=== PATIENT | male | born 1955 | race Caucasian/White ===

== ENCOUNTER 2022-07-16 08:05 | Inpatient (IN) | payer MEDICARE, SELFPAY ==
[2022-07-16] VITALS (11 sets, daily range): BP systolic 100–141; BP diastolic 60–95; PULSE 75–120; RESP 15–22; TEMP 36.4–36.9; O2SAT 94–97; BMI 29.0; BMI 26.3
--- NOTE | 2022-07-16 08:08 | ED_ITS ---
HPI - GI Bleed General: Chief complaint: GI Bleed Stated complaint: bloody stool Time Seen by Provider: 07/16/22 08:08 History of Present Illness: Mr. Roberson is a 67-year-old gentleman with out reported significant past medical history who presents to the ER for GI bleed. He reports 3 days of subacute onset abdominal discomfort associated with multiple episodes of watery diarrhea and vomiting. This morning he had worse abdominal cramping and pain with bowel movement with blood noted in stool. Mild associated lightheadedness and generalized malaise. Denies history of similar. No history of endoscopy. No history of bleeding disorders or other bruising. Course of symptoms has persisted. Intensity of abdominal discomfort is moderate to severe. No history of abdominal surgery. No other specific changes in health, exacerbating, or alleviating factors identified. Onset (ago): day(s) Pain Consistency: constant Severity: moderate Review of Systems General: Reports: 10 or more systems reviewed and unremarkable except in HPI and below PFSH ED PFSH: Medical History (Updated 07/19/22 @ 00:01 by ) COPD (chronic obstructive pulmonary disease) Depression with anxiety DJD (degenerative joint disease) GERD (gastroesophageal reflux disease) Hyperlipidemia No significant past medical history Osteoporosis Rheumatoid arthritis Surgical History (Updated 07/16/22 @ 08:35 by Asad Bateman MD) No significant past surgical history Family History (Updated 07/16/22 @ 11:30 by Leonardo Talamantes MD) Other Diabetes Social History (Updated 07/16/22 @ 11:30 by Leonardo Talamantes MD) Smoking and tobacco status: current every day smoker Alcohol intake: never Physical Exam Const: COMMON NORMALS: alert GENERAL APPEARANCE: cooperative and well developed HENMT: COMMON NORMALS: normocephalic and atraumatic HEAD & SCALP: normocephalic and atraumatic Eye: COMMON NORMALS: conjunctivae normal CONJUNCTIVA: Yes conjunctivae normal SCLERA: sclerae normal Neck/C-Spine: COMMON NORMALS: supple GENERAL: Yes trachea midline Resp: COMMON NORMALS: normal respiratory effort EFFORT & INSPECTION: Yes able to speak in complete sentences AUSCULTATION: diminished lung sounds Cardio: COMMON NORMALS: regular rhythm RATE: tachycardic RHYTHM: regular rhythm GI: COMMON NORMALS: Soft to palpation PALPATION: Yes Soft to palpation, Yes Tenderness to palpation present (GI), Yes Guarding due to palpation present (GI) and No Rigid due to palpation Extremity: GENERAL: Yes normal exam except as noted and No edema Neuro: COMMON NORMALS: moves all extremities SENSORIUM/ORIENTATION: Yes alert and No Orientation impaired Psych: COMMON NORMALS: mental status grossly normal and Normal thought process present THOUGHT PROCESS: Normal thought process present Course ED course: - Patient was seen and evaluated by me at bedside - Patient placed on cardiac monitors, IV access obtained - Initial evaluation notable for exam as above - Labs personally interpreted by me - Fluids, analgesia, and antiemetic given - Labs notable for leukocytosis, satisfactory hemoglobin. Metabolic panel with evidence of intravascular dehydration - Imaging notable for diverticulitis which likely explain symptoms. Antibiotic ordered. - Upon serial reexamination after treatment the patient was mildly improved. - Based on patient history, evaluation, and testing as interpreted the most likely cause of the patient's condition is diverticulitis resulting in dehydration with CHRISTIAN and GI bleed - The results of ED evaluation were discussed with the patient including plan for admission due to requirement for level of care not available if discharged to prevent significant worsening/deterioration. - Admitting service was contacted and Dr Talamantes with the hospital service agreed to admit the patient - Patient was admitted without further deterioration or significant events. Note: Click bubbles or prepopulated caicedo in note writing are used for assistance with data collection and billing and are inherently more limited than narrative and other text portions of this note. Please use narrative for additional clinical history and defer to narrative/free test for any case of contradictory information. If information appears in only free text or click bubble it should be considered present or absent as reported. Please contact note senior medical writer for clarifications of clinical information or contradictory information. MDM is a brief summary, contradictory or erroneous seeming information should be clarified and full note should be reviewed. Vital Signs: Vital signs: Vital Signs Temperature 98.1 F 07/18/22 15:26 Pulse Rate 74 07/18/22 15:26 Respiratory Rate 18 07/18/22 15:26 Blood Pressure 112/66 07/18/22 15:26 Pulse Oximetry 92 07/18/22 15:26 Oxygen Delivery La thod 07/18/22 11:46 MDM - GI Bleed Medical Decision Making 67-year-old gentleman presenting with 3 days of GI illness now with blood per rectum. CHRISTIAN likely from dehydration as well as diverticulitis. Given laboratory abnormalities and patient exam patient admitted for further observation to hospitalist service. Medical Records I reviewed the patient's medical records. Lab Data I reviewed the patient's lab results. : 07/18/22 04:43 07/18/22 04:43 Radiology Impressions Abdomen/Pelvis CT 07/16/22 08:28 IMPRESSION: 1. Mild descending colon and sigmoid diverticulitis without a focal abscess or free air. 2. Extensive diverticular disease throughout the colon. 3. Bilateral renal cysts. 4. Several osteoporotic compression fractures. Laboratory Results WBC 11.1 10^3/uL (4.0-10.0) H 07/17/22 04:53 RBC 3.85 10^6/uL (4.1-5.3) L 07/17/22 04:53 Hgb 13.2 g/dL (11.7-16.6) 07/17/22 04:53 Hct 39.2 % (42.0-52.0) L 07/17/22 04:53 MCV 101.8 fl (80-94) H 07/17/22 04:53 MCH 34.3 pg (28.0-34.0) H 07/17/22 04:53 MCHC 33.7 g/dL (30.0-36.0) 07/17/22 04:53 RDW 14.8 % (12.1-15.1) 07/17/22 04:53 Plt Count 168 10^3/cmm (130-400) 07/17/22 04:53 MPV 9.2 fL (7.4-10.4) 07/17/22 04:53 Neut % (Auto) 77.2 % 07/17/22 04:53 Lymph % (Auto) 14.4 % 07/17/22 04:53 Dixie % (Auto) 7.6 % 07/17/22 04:53 Eos % (Auto) 0.2 % 07/17/22 04:53 Baso % (Auto) 0.1 % 07/17/22 04:53 Neut # (Auto) 8.56 10^3/uL (1.8-7.7) H 07/17/22 04:53 Lymph # (Auto) 1.6 10^3/uL (0.8-4.8) 07/17/22 04:53 Dixie # (Auto) 0.8 10^3/uL (0.2-0.9) 07/17/22 04:53 Eos # (Auto) 0.0 10^3/uL (0.0-0.8) 07/17/22 04:53 Baso # (Auto) 0.0 10^3/uL (0.0-0.1) 07/17/22 04:53 Nucleated RBC % (auto) 0.2 % 07/17/22 04:53 Nucleated RBCs # 0.0 /100WBC 07/17/22 04:53 PT 14.20 SECONDS (12.1-14.9) 07/16/22 08:30 INR 1.25 (0.8-1.2) H 07/16/22 08:30 APTT 25.2 SECONDS (23.9-36.7) 07/16/22 08:30 Sodium 136 mmol/L (136-145) 07/17/22 04:53 Potassium 4.2 mmol/L (3.5-5.1) 07/17/22 04:53 Chloride 104 mmol/L (98-107) 07/17/22 04:53 Carbon Dioxide 24 mmol/L (22-29) 07/17/22 04:53 Anion Gap 12.2 (5-19) 07/17/22 04:53 BUN 21 mg/dL (8-23) 07/17/22 04:53 Creatinine 0.9 mg/dL (0.7-1.2) 07/17/22 04:53 GFR Calculation 84.2 mL/min (90-130) L 07/17/22 04:53 Glucose 103 mg/dL (65-115) 07/17/22 04:53 Estimat Average Glucose 120 07/16/22 08:30 Hemoglobin A1c 5.8 % (4.0-6.0) 07/16/22 08:30 Calculated Osmolality 285 mOsm/kg (285-295) 07/17/22 04:53 Calcium 8.3 mg/dL (8.5-10.5) L 07/17/22 04:53 Magnesium 2.0 mg/dL (1.7-2.3) 07/17/22 04:53 Total Bilirubin 0.8 mg/dL (0.15-1.2) 07/17/22 04:53 AST 15 U/L (0-40) 07/17/22 04:53 ALT 8 U/L (0-41) 07/17/22 04:53 Alkaline Phosphatase 63 U/L (40-130) 07/17/22 04:53 Total Protein 5.5 g/dL (6.6-8.7) L D 07/17/22 04:53 Albumin 3.1 g/dL (3.5-5.2) L 07/17/22 04:53 Globulin 2.4 g/dL (1.3-4.6) 07/17/22 04:53 Lipase 14 U/L (13-60) 07/16/22 08:30 Vitamin B12 616 pg/mL (232-1245) 07/16/22 08:30 Folate 18.4 ng/mL (4.5-32.2) 07/16/22 08:30 TSH 3.65 uIU/mL (0.27-4.20) 07/16/22 08:30 Blood Type O Positive 07/16/22 08:30 Rho(D) Type Positive 07/16/22 08:30 Antibody Screen Negative 07/16/22 08:30 Discharge Plan Discharge Patient Disposition: Placed in Observation Admit Provider: Leonardo Talamantes Clinical Impression: Melena, Acute GI bleeding, Diverticulitis, Leukocytosis, Dehydration, CHRISTIAN (acu te kidney injury) Discharge Activity: Resume usual activity Coding Level of Care Code ED Animal Hospital Clerk for Marcos Fwd Exam Comprehensive
--- NOTE | 2022-07-16 08:28 | CT_ITS ---
WS: [id number] CT ABDOMEN AND PELVIS WITH CONTRAST HISTORY: gi bleed, 3 days n/v/d, abdominal pain generalized TECHNIQUE: Imaging performed of the abdomen and pelvis with IV contrast. Single phase imaging of the abdomen. Coronal and sagittal reformats are submitted. All CT scans at [facility] use at [address] one of these dose optimization techniques: automated exposure control; mA and/or kV adjustment per patient size (includes targeted exams where dose is matched to clinical indication); or iterative re construction. IV CONTRAST: Omnipaque 350; 95 mL IV. Oral contrast: No DLP: 645.49 mGy.cm COMPARISON: None available. Lower thorax: Lung bases are clear. Heart is normal size. Small hiatal hernia. Liver/biliary system: Normal size with granulomata. No mass. Normal portal vein. Gallbladder: Normal. No gallstones or wall thickening. No pericholecystic fluid. Pancreas: Normal size pancreas and pancreatic duct. No adjacent inflammation. Spleen: Normal size spleen. No mass or infarct. Adrenal glands: Normal. Right kidney: No obstruction. Mild perinephric stranding. Nonobstructing 4 mm calcification lower dillon e. Small cortical cysts. Left kidney: Mild perinephric stranding with small cortical cysts. No obstruction. Aorta: Mild atherosclerosis with no aneurysm. No mesenteric artery stenosis or thrombus identified. Lymphadenopathy: None. Free fluid: None. GI tract: Normal stomach and small bowel. Numerous diverticula throughout the entire colon. Largest d istribution of diverticulitis towards the sigmoid colon. There is some very mild inflammation in the descending colon around several diverticula extending towards the sigmoid. No focal perforation or ab scess. Normal appendix. Abdominal wall: Unremarkable abdominal wall. No hernia. Pelvis: Urinary bladder well distended. No adenopathy or free fluid. Bones: L1, L2 and L4 mild compression deformities. Additional T9 mild compression deformity. CT/CT abdomen pelvis w con* [id number] IMPRESSION: 1. Mild descending colon and sigmoid diverticulitis without a focal abscess or free air. 2. Extensive diverticular disease throughout the colon. 3. Bilateral renal cysts. 4. Several osteoporotic compression fractures.
[2022-07-16] MEDS: lactated ringers 1,000 ML 999 ML IV (08:45)
[2022-07-16] MEDS: morphine 4 mg/mL SDV 1 mL IVP (08:46)
[2022-07-16] MEDS: ondansetron 2 mg/ML SDV 2 mL 4 MG IVP (08:46)
[2022-07-16 08:58] LABS: Basophils # 0.1 10^3/uL (0.0-0.1); Basophils % 0.3 %; Eosinophils % 0.3 %; Hematocrit 52.7 % (42.0-52.0); Hemoglobin 17.1 g/dL (11.7-16.6); Lymphocytes % 13.2 %; Mean Corpuscular HGB Conc 32.4 g/dL (30.0-36.0); Mean Corpuscular Hemoglobin 33.9 pg (28.0-34.0); Mean Corpuscular Volume 104.4 fl (80-94); Mean Platelet Volume 9.1 fL (7.4-10.4); Monocytes # 0.9 10^3/uL (0.2-0.9); Monocytes % 6.2 %; Neutrophils # 11.99 10^3/uL (1.8-7.7); Neutrophils % 79.3 %; Nucleated Red Blood Cells % 0.2 %; Platelet Count 234 10^3/cmm (130-400); Red Blood Count 5.05 10^6/uL (4.1-5.3); White Blood Count 15.1 10^3/uL (4.0-10.0)
[2022-07-16 09:18] LABS: Alanine Aminotransferase 10 U/L (0-41); Albumin Level 4.1 g/dL (3.5-5.2); Alkaline Phosphatase 91 U/L (40-130); Anion Gap 21.1 (5-19); Aspartate Amino Transferase 19 U/L (0-40); Blood Urea Nitrogen 44 mg/dL (8-23); Calcium 9.1 mg/dL (8.5-10.5); Carbon Dioxide 20 mmol/L (22-29); Chloride 97 mmol/L (98-107); Globulin 3.2 g/dL (1.3-4.6); Glomerular Filtration Rate 50.5 mL/min (90-130); Glucose 136 mg/dL (65-115); Lipase 14 U/L (13-60); Osmolality Calculated 291 mOsm/kg (285-295); Potassium 4.1 mmol/L (3.5-5.1); Sodium 134 mmol/L (136-145); Total Bilirubin 1.2 mg/dL (0.15-1.2); Total Protein 7.3 g/dL (6.6-8.7)
[2022-07-16 09:23] LABS: INR 1.25 (0.8-1.2)
[2022-07-16 09:24] LABS: Partial Thromboplastin Time 25.2 SECONDS (23.9-36.7)
[2022-07-16] MEDS: iohexol 350 mg/mL 100 mL Btl IV (09:48)
[2022-07-16] MEDS: ciprofloxacin 400 MG/200 ML PREMIX 200 MG IV ×2 (10:36→21:05)
--- NOTE | 2022-07-16 11:26 | PM.HP ---
Providers/Chief Complaint Admitting Physician: Leonardo Talamantes MD, hospitalist Primary Care Provider: Abel Moser MD Chief Complaint: bloody stool History of Present Illness Jc Roberson is a 67 year old male who presents to the hospital emergency department with complaints of abdominal pain. This is been going on 3 days, and mainly in his left lower quadrant. This morning, he had a dark stool with obvious blood. He had never had blood in his stool before, or abdominal discomfort. He has been nauseated, and vomited 1 time yesterday. No blood present in his emesis. He has had some chills but no fever. He reports no prior history of colonoscopy. Bowel movement today was blood mixed with stool. Review of Systems General: Reports: 10 or more systems reviewed and unremarkable except in HPI and below Const: Reports: chills and fatigue; Denies: fever(s) Eyes: Denies: change in vision ENMT: Denies: throat pain Card: Denies: chest pain Resp: Denies: dyspnea GI: Reports: abdominal pain, nausea, vomiting and hematochezia; Denies: hematemesis or melena : Denies: flank pain or difficulty urinating Musc: Reports: back pain; Denies: neck pain Skin/Breast: Denies: rash Neuro: Denies: headache(s) Psych: Denies: anxiety or depression Endo: Denies: polyuria Norm/Lymph: Reports: easy bruising All/Imm: Denies: urticaria Medications/Allergies Home Medications Medication Instructions Recorded Confirmed Last Taken Type albuterol sulfate 90 mcg/actuation 2 puff inhalation Q4H PRN 07/16/22 07/16/22 Unknown History aerosol inhaler (Ventolin HFA) Shortness Of Breath Or Wheezing citalopram 40 mg tablet 40 mg PO DAILY 07/16/22 07/16/22 Unknown History diclofenac sodium 1 % topical gel 1 ea topical Q6H 07/16/22 07/16/22 Unknown History ezetimibe 10 mg tablet 10 mg PO DAILY 07/16/22 07/16/22 Unknown History fluconazole 200 mg tablet 200 mg PO DAILY 07/16/22 07/16/22 Unknown History folic acid 1 mg tablet 1 mg PO DAILY 07/16/22 07/16/22 Unknown History gabapentin 300 mg capsule 300 mg PO TID 07/16/22 07/16/22 Unknown History methotrexate sodium 2.5 mg tablet 2.5 mg PO DAILY 07/16/22 07/16/22 Unknown History omeprazole 20 mg capsule,delayed 20 mg PO BID 07/16/22 07/16/22 Unknown History release prednisone 5 mg tablet 10 mg PO DAILY 07/16/22 07/16/22 Unknown History tizanidine 4 mg capsule 4 mg PO TID 07/16/22 07/16/22 Unknown History tramadol 50 mg tablet 50 mg PO Q6H 07/16/22 07/16/22 Unknown History trazodone 50 mg tablet 50 mg PO DAILY 07/16/22 07/16/22 Unknown History Allergies Allergy/AdvReac Type Severity Reaction Status Date / Time No Known Allergies Allergy Verified 07/16/22 09:05 PFSH Acute PFSH: Medical History (Updated 07/16/22 @ 11:38 by Leonardo Talamantes MD) COPD (chronic obstructive pulmonary disease) Depression with anxiety DJD (degenerative joint disease) GERD (gastroesophageal reflux disease) Hyperlipidemia No significant past medical history Osteoporosis Rheumatoid arthritis Surgical History (Updated 07/16/22 @ 08:35 by Asad Bateman MD) No significant past surgical history Family History (Updated 07/16/22 @ 11:30 by Leonardo Talamantes MD) Other Diabetes Social History (Updated 07/16/22 @ 11:30 by Leonardo Talamantes MD) Smoking and tobacco status: current every day smoker Alcohol intake: never Other PFSH information: Supplemental PFSH Information: History of right carotid gland surgery or perhaps lymph node surgery many years ago. Vitals/I&O/Wt Last Vital Signs Temp 97.6 F 07/16/22 08:17 Pulse 98 07/16/22 08:42 Resp 18 07/16/22 08:46 BP 140/95 07/16/22 08:42 Pulse Ox 95 07/16/22 08:46 O2 Del Method 07/16/22 08:42 07/15/22 07/16/22 07/16/22 22:59 06:59 14:59 Intake Total 1000 / 1000 Balance 1000 / 1000 Weight last 48 hrs Weight 81.647 kg Physical Exam Narrative: General exam is a white male, somewhat uncomfortable, who is able to relate his history without difficulty HEENT: Atraumatic and normocephalic. Pupils equally round. Oropharynx clear. Neck is supple no lymphadenopathy or thyromegaly Cardiovascular regular rate and rhythm without murmur no S3 or S4 Lungs clear no wheezing or crackles Abdomen is soft. Tenderness is present mainly in the left lower quadrant. Bowel sounds are noted. exams deferred Extremities no cyanosis clubbing or edema Skin no rash Neuro no focal deficits Data : 07/16/22 08:30 07/16/22 08:30 Other Labs: MCV elevated at 104 INR 1.25 LFTs normal Abdomen pelvis CT demonstrates mild descending and sigmoid diverticulitis without abscess or free air and otherwise extensive diverticular disease. Other nonacute findings are noted. Blood culture was collected Micro: Microbiology 07/16/22 08:41 Blood Culture - Preliminary Blood SPECIMEN COLLECTED 07/16/22 08:30 Blood Culture - Preliminary Blood SPECIMEN COLLECTED A&P Assessment and plan (1) Diverticulitis: Patient presents with significant diverticulitis, worsening symptoms over the last 3 days, associated with nausea and vomiting, elevated white blood cell count, chills, and now bleeding. Continue Cipro and Flagyl initiated in the ER Blood culture was obtained May have medicines, clear liquids Monitor closely for improvement Will need outpatient colonoscopy in approximately 6 weeks Status: Acute (2) Acute GI bleeding: GI bleeding most likely secondary to diverticulitis. However, as he has had nausea and vomiting, is on prednisone, and long history of reflux will place on Protonix IV Repeat hemoglobin at 6 PM Monitor stools for any further bleeding Status: Acute (3) Leukocytosis: Secondary to diverticulitis, trend Status: Acute (4) CHRISTIAN (acute kidney injury): Hydration Avoid renal toxic medication Recheck renal function tomorrow Status: Acute (5) Rheumatoid arthritis: Hold methotrexate in face of infection As he is chronically on steroids, has a significant acute infection, will increase prednisone to 10 mg twice daily Status: Acute (6) Hyperglycemia: Check hemoglobin A1c Status: Acute (7) Macrocytosis: Most likely secondary to methotrexate. Check TSH, B12, folate Status: Acute Plan Multiple other medical problems as outlined in past medical history Full code SCDs for DVT prophylaxis. Anticoagulation contraindicated secondary to GI bleed Attestations Medical Necessity Statement*: May require less than 2 midnight stay if rapidly improves from diverticulitis and is able to tolerate diet and has no further bleeding. Coding Level of Care Code Acute Training Administrator for g Fwd Diagnoses Diverticulitis K57.92 Acute GI bleeding K92.2 Leukocytosis D72.829 CHRISTIAN (acute kidney injury) N17.9 Rheumatoid arthritis M06.9 Hyperglycemia R73.9 Macrocytosis D75.89
[2022-07-16] MEDS: metroNIDAZOLE IV 500 MG/100 ML PREMIX 100 MG IV ×3 (11:38→23:21)
[2022-07-16 11:59] LABS: Estmated Average Glucose 120; Hemoglobin A1C 5.8 % (4.0-6.0)
[2022-07-16 13:11] LABS: Folate Level 18.4 ng/mL (4.5-32.2)
[2022-07-16 13:12] LABS: Thyroid Stimulating Hormone 3.65 uIU/mL (0.27-4.20); Vitamin B12 616 pg/mL (232-1245)
[2022-07-16] MEDS: sodium chloride 0.9% 1,000 ML 75 ML IV ×2 (14:55→23:20)
[2022-07-16] MEDS: gabapentin 300 mg Capsule PO ×2 (14:56→20:30)
[2022-07-16] MEDS: TRAMadol 50 mg Tablet PO (14:56)
[2022-07-16] MEDS: pantoprazole 40 mg SDV IVP (15:18)
[2022-07-16] MEDS: predniSONE 10 mg Tablet PO (17:15)
[2022-07-16 18:42] LABS: Hematocrit 40.5 % (42.0-52.0); Hemoglobin 13.8 g/dL (11.7-16.6)
[2022-07-16] MEDS: trazodone 50 mg Tablet PO (20:30)
[2022-07-17] VITALS (7 sets, daily range): BP systolic 91–134; BP diastolic 51–87; PULSE 66–86; RESP 14–20; TEMP 36.7–37.1; O2SAT 92–98
--- NOTE | 2022-07-17 00:08 | PC.NURSE ---
Patient states that his pain is at a tolerable level. Patient educated about PRN medications options that are available and verbalized understanding.
[2022-07-17] MEDS: metroNIDAZOLE IV 500 MG/100 ML PREMIX 100 MG IV ×4 (04:17→22:19)
[2022-07-17] MEDS: pantoprazole 40 mg SDV IVP ×2 (04:17→16:08)
[2022-07-17 05:12] LABS: Basophils % 0.1 %; Eosinophils % 0.2 %; Hematocrit 39.2 % (42.0-52.0); Hemoglobin 13.2 g/dL (11.7-16.6); Lymphocytes # 1.6 10^3/uL (0.8-4.8); Lymphocytes % 14.4 %; Mean Corpuscular HGB Conc 33.7 g/dL (30.0-36.0); Mean Corpuscular Hemoglobin 34.3 pg (28.0-34.0); Mean Corpuscular Volume 101.8 fl (80-94); Mean Platelet Volume 9.2 fL (7.4-10.4); Monocytes # 0.8 10^3/uL (0.2-0.9); Monocytes % 7.6 %; Neutrophils # 8.56 10^3/uL (1.8-7.7); Neutrophils % 77.2 %; Nucleated Red Blood Cells % 0.2 %; Platelet Count 168 10^3/cmm (130-400); Red Blood Count 3.85 10^6/uL (4.1-5.3); Red Cell Distribution Width 14.8 % (12.1-15.1); White Blood Count 11.1 10^3/uL (4.0-10.0)
[2022-07-17 05:43] LABS: Alanine Aminotransferase 8 U/L (0-41); Albumin Level 3.1 g/dL (3.5-5.2); Alkaline Phosphatase 63 U/L (40-130); Anion Gap 12.2 (5-19); Aspartate Amino Transferase 15 U/L (0-40); Blood Urea Nitrogen 21 mg/dL (8-23); Calcium 8.3 mg/dL (8.5-10.5); Carbon Dioxide 24 mmol/L (22-29); Chloride 104 mmol/L (98-107); Globulin 2.4 g/dL (1.3-4.6); Glomerular Filtration Rate 84.2 mL/min (90-130); Glucose 103 mg/dL (65-115); Osmolality Calculated 285 mOsm/kg (285-295); Potassium 4.2 mmol/L (3.5-5.1); Sodium 136 mmol/L (136-145); Total Bilirubin 0.8 mg/dL (0.15-1.2); Total Protein 5.5 g/dL (6.6-8.7)
--- NOTE | 2022-07-17 08:47 | P.PN_ITS ---
Subjective Subjective: Jc reports that his abdomen feels a little bit better, although fractionating still operator. He has not had any nausea and vomiting. Some chills but no fever through the night. Medications: Reviewed: Yes Vitals/I&O/Wt Last Vital Signs Temp 98.4 F 07/17/22 08:00 Pulse 77 07/17/22 08:00 Resp 17 07/17/22 08:00 BP 103/56 07/17/22 08:00 Pulse Ox 92 07/17/22 08:00 O2 Del Method 07/17/22 08:00 07/16/22 07/17/22 07/17/22 22:59 06:59 14:59 Intake Total 540 / 1840 1031.25 / 2871.25 Output Total 600 / 600 Balance -60 / 1240 1031.25 / 2271.25 Weight last 48 hrs Weight 73.964 kg Weight 81.647 kg Physical Exam Narrative: General exam complains of abdominal pain but no obvious distress Neck is supple no lymphadenopathy or thyromegaly Cardiovascular regular rate and rhythm without murmur no S3 or S4 Lungs clear no wheezing or crackles Abdomen is soft. Bowel sounds are noted. Significant tenderness left lower quadrant is still present. exams deferred Extremities no cyanosis clubbing or edema Skin no rash Data : 07/17/22 04:53 07/17/22 04:53 Micro: Microbiology 07/16/22 08:41 Blood Culture - Preliminary Blood SPECIMEN COLLECTED 07/16/22 08:30 Blood Culture - Preliminary Blood SPECIMEN COLLECTED A&P Assessment and plan (1) Diverticulitis: Patient presents with significant diverticulitis, worsening symptoms over the last 3 days, associated with nausea and vomiting, elevated white blood cell count, chills, and now bleeding. Continue Cipro and Flagyl Patient reports pain is slightly improved Blood culture was obtained and negative to date Continue clear liquids currently. Will reevaluate this afternoon whether he cou ld go to full liquids. Monitor closely for improvement Will need outpatient colonoscopy in approximately 6 weeks Status: Acute (2) Acute GI bleeding: GI bleeding most likely secondary to diverticulitis. However, as he has had nausea and vomiting, is on prednisone, and long history of reflux will place on Protonix IV Hemoglobin has remained stable He has had no further bloody bowel movements other than shortly after admission Status: Acute (3) Leukocytosis: Secondary to diverticulitis, trend Status: Acute (4) CHRISTIAN (acute kidney injury): Resolved Reduce IV fluid rate Avoid renal toxic medication Status: Acute (5) Rheumatoid arthritis: Hold methotrexate in face of infection As he is chronically on steroids, has a significant acute infection, will continue increasde prednisone dosing at 10 mg twice daily Status: Acute (6) Hyperglycemia: Hemoglobin A1c was not elevated Status: Acute (7) Macrocytosis: Most likely secondary to methotrexate. TSH, B12 and folate levels were normal Status: Acute Plan Multiple other medical problems as outlined in past medical history Full code SCDs for DVT prophylaxis. Anticoagulation contraindicated secondary to GI bleed Attestations Medical Necessity Statement*: Needs continued hospitalization for IV antibiotics secondary to acute diverticulitis with persistent severe pain. Coding Level of Care Code Acute Retail Associate Manager Bilingual for Marcso Christina Diagnoses Diverticulitis K57.92 Acute GI bleeding K92.2 Leukocytosis D72.829 CHRISTIAN (acute kidney injury) N17.9 Rheumatoid arthritis M06.9 Hyperglycemia R73.9 Macrocytosis D75.89
[2022-07-17] MEDS: folic acid 1 mg Tablet PO (08:59)
[2022-07-17] MEDS: TRAMadol 50 mg Tablet PO (08:59)
[2022-07-17] MEDS: citalopram 20 mg Tablet 40 MG PO (08:59)
[2022-07-17] MEDS: nicotine 21 mg Patch 1 PATCH TRANSDERMA (09:00)
[2022-07-17] MEDS: predniSONE 10 mg Tablet PO ×2 (09:00→18:32)
[2022-07-17] MEDS: fluconazole 100 mg Tablet 200 MG PO (09:00)
[2022-07-17] MEDS: ezetimibe 10 mg Tablet PO (09:00)
[2022-07-17] MEDS: tizanidine 4 mg Tablet PO (09:00)
[2022-07-17] MEDS: gabapentin 300 mg Capsule PO ×3 (09:00→20:15)
[2022-07-17] MEDS: ciprofloxacin 400 MG/200 ML PREMIX 200 MG IV ×2 (09:03→22:19)
--- NOTE | 2022-07-17 09:59 | PC.CHAP ---
Pastoral Care Encounter/Spiritual Assessment Type of Contact [] Declined glove presser visit [] Patient/Family/Request visit [] Outpatient visit [] Follow-up visit [] Physician referral [] Code/Alert [x] Routine visit [] Staff referral [] Actively dying [] Patient sleeping [] Family support [] [] Out of room [] Palliative care [] [] Receiving care in room [] Pre-surgical visit [] Trauma [] Long length of stay [] ICU visit [] Other: Relational/Emotional Strength [] Patient feels connected with others/family/visitors/staff [] Distress [] Loneliness/isolation [] Abandonment Spirituality of Patient [] Person of Jaymie [] Attends Christianity of their Jaymie [] Believes in Prayer [] Reads Bible or Gnosticist materials [] There are Spiritual issues to be addressed Jewel Bearing Turner Interventions [xz] Prayer [] Active listening [] Non-anxious presence [] Spiritual/emotional support [] Crisis/trauma care [] Spiritual counseling [] Bereavement support [] Provided bereavement packet [] Provided Bible/devotional materials [] Provided toy/stuffed animal, coloring book to patient or family member [] Provided Communion [] Anointing/[facility] [] Salvation [z] Completed spiritual assessment [] Other: Impact on Illness or Injury [] Angry [] Fearful [] Anxious [] Often cries [] Exhaustion [] Unable to work [] Unable to attend restoration [] Unable to walk/stand [] Unable to read [] Unable to drive [] Unable to eat/drink [] Unable to sleep [] Unable to be with family [] Patient intubated [] Other: Summary Time spent with patient
[2022-07-17] MEDS: trazodone 50 mg Tablet PO (20:15)
--- NOTE | 2022-07-17 20:43 | PC.NURSE ---
NS currently running at 30 ml/hr as ordered. Will not allow me to chart this on jan.
--- NOTE | 2022-07-17 22:15 | PC.NURSE ---
Bright red blood noted in patient's stool.
[2022-07-18] VITALS: BP 130/75; PULSE 91; RESP 18; TEMP 36.8; O2SAT 92
[2022-07-18 04:00] VITALS: BP 131/78; PULSE 68; RESP 21; TEMP 36.8; O2SAT 97
[2022-07-18] MEDS: sodium chloride 0.9% 1,000 ML 30 ML IV (04:21)
[2022-07-18] MEDS: metroNIDAZOLE IV 500 MG/100 ML PREMIX 100 MG IV ×2 (04:21→11:08)
[2022-07-18] MEDS: pantoprazole 40 mg SDV IVP (04:21)
[2022-07-18 05:04] LABS: Eosinophils % 0.1 %; Hemoglobin 12.5 g/dL (11.7-16.6); Lymphocytes # 1.9 10^3/uL (0.8-4.8); Lymphocytes % 16.6 %; Mean Corpuscular HGB Conc 33.8 g/dL (30.0-36.0); Mean Corpuscular Hemoglobin 33.8 pg (28.0-34.0); Mean Platelet Volume 9.4 fL (7.4-10.4); Monocytes # 1.1 10^3/uL (0.2-0.9); Monocytes % 9.3 %; Neutrophils # 8.28 10^3/uL (1.8-7.7); Neutrophils % 73.6 %; Nucleated Red Blood Cells % 0 %; Platelet Count 162 10^3/cmm (130-400); Red Cell Distribution Width 14.7 % (12.1-15.1); White Blood Count 11.3 10^3/uL (4.0-10.0)
[2022-07-18 05:30] LABS: Alanine Aminotransferase 10 U/L (0-41); Albumin Level 3.4 g/dL (3.5-5.2); Alkaline Phosphatase 65 U/L (40-130); Aspartate Amino Transferase 17 U/L (0-40); Blood Urea Nitrogen 15 mg/dL (8-23); Calcium 8.7 mg/dL (8.5-10.5); Carbon Dioxide 25 mmol/L (22-29); Chloride 107 mmol/L (98-107); Globulin 2.2 g/dL (1.3-4.6); Glomerular Filtration Rate 112.5 mL/min (90-130); Glucose 88 mg/dL (65-115); Osmolality Calculated 290 mOsm/kg (285-295); Sodium 140 mmol/L (136-145); Total Bilirubin 0.5 mg/dL (0.15-1.2); Total Protein 5.6 g/dL (6.6-8.7)
[2022-07-18 07:40] VITALS: BP 116/71; PULSE 75; RESP 16; TEMP 36.7; O2SAT 98
[2022-07-18] MEDS: fluconazole 100 mg Tablet 200 MG PO (08:36)
[2022-07-18] MEDS: citalopram 20 mg Tablet 40 MG PO (08:36)
[2022-07-18] MEDS: folic acid 1 mg Tablet PO (08:37)
[2022-07-18] MEDS: predniSONE 10 mg Tablet PO (08:37)
[2022-07-18] MEDS: gabapentin 300 mg Capsule PO ×2 (08:37→14:19)
[2022-07-18] MEDS: ezetimibe 10 mg Tablet PO (08:37)
[2022-07-18] MEDS: nicotine 21 mg Patch 1 PATCH TRANSDERMA (08:37)
[2022-07-18 09:43] VITALS: PULSE 78; RESP 18; O2SAT 97
[2022-07-18] MEDS: ciprofloxacin 400 MG/200 ML PREMIX 200 MG IV (11:08)
[2022-07-18 11:46] VITALS: BP 112/66; PULSE 74; RESP 18; TEMP 36.7; O2SAT 92
--- NOTE | 2022-07-18 14:41 | PC.NURSE ---
Patient reported having a bowel movement. This nurse visualized formed brown stool in the commode. Reported to physician. Tolerated Breakfast clear liquid and lunch full liquid diet well.
--- NOTE | 2022-07-18 14:52 | P.DS_ITS ---
Discharge Providers Date of Admission: 07/17/22 08:51 Date of Discharge: July 18, 2022 Attending Provider at Admission: Leonardo Talamantes MD Attending Provider at Discharge: Natty Bocanegra MD Primary Care Provider: Abel Moser MD Diagnoses at Discharge Discharge Diagnosis (1) Diverticulitis: Status: Acute (2) Acute GI bleeding: Status: Acute (3) Leukocytosis: Status: Acute (4) CHRISTIAN (acute kidney injury): Status: Acute (5) Rheumatoid arthritis: Status: Acute (6) Hyperglycemia: Status: Acute (7) Macrocytosis: Status: Acute Reason for Visit Reason for Visit: bloody stool Brief History: As per Dr. Talamantes Jc Roberson is a 67 year old male who presents to the hospital emergency department with complaints of abdominal pain.? This is been going on 3 days, and mainly in his left lower quadrant.? This morning, he had a dark stool with obvious blood.? He had never had blood in his stool before, or abdominal discomfort.? He has been nauseated, and vomited 1 time yesterday.? No blood present in his emesis.? He has had some chills but no fever.? He reports no prior history of colonoscopy.? Bowel movement today was blood mixed with stool. Hospital Course Hospital Course Patient was admitted for left lower quadrant pain and diarrhea noticed with diverticulitis. He also had nausea and vomiting which has resolved. His diet has been advanced to full liquids which she has tolerated really well today. No drop in hemoglobin. He is not anemic. However did have some blood in stool initially when he presented. Today he had 2 bowel movements and both were brown in color. Patient will be sent home with 14-day course of Augmentin and to follow-up outpatient with general surgery for colonoscopy within 6 weeks. Patient has been advised to return to the ER if he has worsening abdominal pain, fever, shortness of breath, chest pain. He was also told to come back if he sees blood in his stool. Patient is on omeprazole 20 twice daily. We will continue.. CHRISTIAN on admission is also resolved. He is chronically on steroids for rheumatoid arthritis. Due to active infection with diverticulitis I have increased prednisone to 10 twice daily. 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 At that point that can be adjusted. Patient follow-up with PCP within 4 to 7 days of discharge. Physical Exam Narrative: General: Alert oriented x3, patient seen in bed appearing comfortable at this time. HEENT: Normocephalic, atraumatic, EOMI, Cardio: Regular rate rhythm, normal S1-S2, Respiratory: Clear to auscultation bilaterally, no wheezes no rhonchi GI: Abdomen soft, nontender overall with very mild tenderness left lower quadrant present, no distention no guarding,bowel sounds + Behavior: Appropriate and cooperative Extremities: No bilateral lower extremity edema present Discharge Data Studies Completed and Pending Completed Studies During Hospitalization Category Date Time Status CT abdomen pelvis w con* [id number] Stat Cat Scan 07/16/22 08:28 Completed Pending at discharge Category Date Time Status Blood Culture Stat Lab 07/16/22 08:41 Results Radiology Impressions Abdomen/Pelvis CT 07/16/22 08:28 IMPRESSION: 1. Mild descending colon and sigmoid diverticulitis without a focal abscess or free air. 2. Extensive diverticular disease throughout the colon. 3. Bilateral renal cysts. 4. Several osteoporotic compression fractures. Laboratory Results WBC 11.3 10^3/uL (4.0-10.0) H 07/18/22 04:43 RBC 3.70 10^6/uL (4.1-5.3) L 07/18/22 04:43 Hgb 12.5 g/dL (11.7-16.6) 07/18/22 04:43 Hct 37.0 % (42.0-52.0) L 07/18/22 04:43 MCV 100.0 fl (80-94) H 07/18/22 04:43 MCH 33.8 pg (28.0-34.0) 07/18/22 04:43 MCHC 33.8 g/dL (30.0-36.0) 07/18/22 04:43 RDW 14.7 % (12.1-15.1) 07/18/22 04:43 Plt Count 162 10^3/cmm (130-400) 07/18/22 04:43 MPV 9.4 fL (7.4-10.4) 07/18/22 04:43 Neut % (Auto) 73.6 % 07/18/22 04:43 Lymph % (Auto) 16.6 % 07/18/22 04:43 Webb % (Auto) 9.3 % 07/18/22 04:43 Eos % (Auto) 0.1 % 07/18/22 04:43 Baso % (Auto) 0.0 % 07/18/22 04:43 Neut # (Auto) 8.28 10^3/uL (1.8-7.7) H 07/18/22 04:43 Lymph # (Auto) 1.9 10^3/uL (0.8-4.8) 07/18/22 04:43 Webb # (Auto) 1.1 10^3/uL (0.2-0.9) H 07/18/22 04:43 Eos # (Auto) 0.0 10^3/uL (0.0-0.8) 07/18/22 04:43 Baso # (Auto) 0.0 10^3/uL (0.0-0.1) 07/18/22 04:43 Nucleated RBC % (auto) 0 % 07/18/22 04:43 Nucleated RBCs # 0.0 /100WBC 07/18/22 04:43 PT 14.20 SECONDS (12.1-14.9) 07/16/22 08:30 INR 1.25 (0.8-1.2) H 07/16/22 08:30 APTT 25.2 SECONDS (23.9-36.7) 07/16/22 08:30 Sodium 140 mmol/L (136-145) 07/18/22 04:43 Potassium 4.0 mmol/L (3.5-5.1) 07/18/22 04:43 Chloride 107 mmol/L (98-107) 07/18/22 04:43 Carbon Dioxide 25 mmol/L (22-29) 07/18/22 04:43 Anion Gap 12.0 (5-19) 07/18/22 04:43 BUN 15 mg/dL (8-23) 07/18/22 04:43 Creatinine 0.7 mg/dL (0.7-1.2) 07/18/22 04:43 GFR Calculation 112.5 mL/min (90-130) 07/18/22 04:43 Glucose 88 mg/dL (65-115) 07/18/22 04:43 Estimat Average Glucose 120 07/16/22 08:30 Hemoglobin A1c 5.8 % (4.0-6.0) 07/16/22 08:30 Calculated Osmolality 290 mOsm/kg (285-295) 07/18/22 04:43 Calcium 8.7 mg/dL (8.5-10.5) 07/18/22 04:43 Magnesium 2.0 mg/dL (1.7-2.3) 07/17/22 04:53 Total Bilirubin 0.5 mg/dL (0.15-1.2) 07/18/22 04:43 AST 17 U/L (0-40) 07/18/22 04:43 ALT 10 U/L (0-41) 07/18/22 04:43 Alkaline Phosphatase 65 U/L (40-130) 07/18/22 04:43 Total Protein 5.6 g/dL (6.6-8.7) L 07/18/22 04:43 Albumin 3.4 g/dL (3.5-5.2) L 07/18/22 04:43 Globulin 2.2 g/dL (1.3-4.6) 07/18/22 04:43 Lipase 14 U/L (13-60) 07/16/22 08:30 Vitamin B12 616 pg/mL (232-1245) 07/16/22 08:30 Folate 18.4 ng/mL (4.5-32.2) 07/16/22 08:30 TSH 3.65 uIU/mL (0.27-4.20) 07/16/22 08:30 Blood Type O Positive 07/16/22 08:30 Rho(D) Type Positive 07/16/22 08:30 Antibody Screen Negative 07/16/22 08:30 Vitals Last Vital Signs Temp 98.1 F 07/18/22 11:46 Pulse 74 07/18/22 11:46 Resp 18 07/18/22 11:46 BP 112/66 07/18/22 11:46 Pulse Ox 92 07/18/22 11:46 O2 Del Method 07/18/22 11:46 Discharge Plan Discharge Patient Disposition: Home Condition: Stable Prescriptions: New amoxicillin-pot clavulanate 875-125 mg tablet 1 tab PO BID 14 Days Qty: 28 0RF Continued citalopram 40 mg tablet 40 mg PO DAILY trazodone 50 mg tablet 50 mg PO DAILY fluconazole 200 mg tablet 200 mg PO DAILY tramadol 50 mg tablet 50 mg PO Q6H methotrexate sodium 2.5 mg tablet 2.5 mg PO DAILY gabapentin 300 mg capsule 300 mg PO TID omeprazole 20 mg capsule,delayed release(DR/EC) 20 mg PO BID folic acid 1 mg tablet 1 mg PO DAILY Ventolin HFA 90 mcg/actuation HFA aerosol inhaler 2 puff INHALATION Q4H PRN (Reason: Shortness Of Breath Or Wheezing) ezetimibe 10 mg tablet 10 mg PO DAILY tizanidine 4 mg capsule 4 mg PO TID diclofenac sodium 1 % gel 1 ea TOPICAL Q6H Changed prednisone 5 mg tablet 10 mg PO BIDWM Qty: 30 0RF Discharge Orders: Discharge Order (Routine); Ordered 07/18/22 Ordered By: Natty Bocanegra Other Ambulatory Orders: Complete Blood Count w/Auto (Routine) Timeframe: 20220722 Location: Determined by Patient Ordered By: Natty Bocanegra Referrals: Moreno Lord MD [Physician] - 6 Weeks (Please call Wednesday to make an appointment in 6 weeks. ) Abel Moser MD [Primary Care Provider] - 4-7 days Saulo,Lj Rivas DO [Physician] - 7-10 days (Please call Wednesday morning to make a follow up to see your pcp in office within a week. ) Discharge Activity: Resume usual activity Patient Instructions: Amoxicillin/Clavulanate Potassium (By mouth), Hyperglycemia, Gastrointestinal Bleeding (DC), Diverticulitis (DC), GI (Gastrointestinal) Soft Diet (DC), Opioid Safety Activity Restrictions/Additional Instructions: Please follow full liquid diet for the next 3 to 4 days and then slowly advance to diet thereafter. Please follow-up with general surgery within 6 weeks for colonoscopy. Please complete your antibiotics as prescribed. If you develop bloody stool, diarrhea, worsening abdominal pain, shortness of breath, chest pain, lightheadedness, dizziness, fever please return to the emergency department immediately. Please recheck your labs as advised in 3 to 4 days. Discharge Attestations Time Spent in Discharge Care*: less than 30 min Quality Metrics Clinical Quality Measures [ No reported AMI, CVA or VTE this stay] Coding Level of Care Code Acute Chg FW DC note Diagnoses Diverticulitis K57.92 Acute GI bleeding K92.2 Leukocytosis D72.829 CHRISTIAN (acute kidney injury) N17.9 Rheumatoid arthritis M06.9 Hyperglycemia R73.9 Macrocytosis D75.89
--- NOTE | 2022-07-18 15:01 | PC.NURSE ---
Discharge Note Patient discharged to home via wheelchair accompanied by . Discharge instructions reviewed with patient and/or loss control representative. Mobile pharmacy medications and/or prescriptions provided. Belongings/home medications returned.
[2022-07-18 15:26] VITALS: BP 112/66; PULSE 74; RESP 18; TEMP 36.7; O2SAT 92
== END 2022-07-18 15:31 | disposition home or self-care (01) | DRG 378 ==
LOC: ER 10:37 → MEDSURG 11:49
PROVIDERS: Admitting Provider Internal Medicine; Emergency Provider Emergency Medicine; PCP Family Medicine; Visit Provider Internal Medicine
DX: K57.33 Diverticulitis of large intestine without perforation or abscess with bleeding (principal); N17.9 Acute kidney failure, unspecified; J44.9 Chronic obstructive pulmonary disease, unspecified; F41.8 Other specified anxiety disorders; K21.9 Gastro-esophageal reflux disease without esophagitis; E78.5 Hyperlipidemia, unspecified; M81.0 Age-related osteoporosis without current pathological fracture; M06.9 Rheumatoid arthritis, unspecified; F17.200 Nicotine dependence, unspecified, uncomplicated; R73.9 Hyperglycemia, unspecified; T45.1X5A Adverse effect of antineoplastic and immunosuppressive drugs, initial encounter; D75.89 Other specified diseases of blood and blood-forming organs; Z79.52 Long term (current) use of systemic steroids; Z79.891 Long term (current) use of opiate analgesic
CPT/HCPCS: 36415; 74177; 80053; 82607; 82746; 83036; 83690; 83735; 84443; 85014; 85018; 85025; 85610; 85730; 86850; 86900; 87040; 94760; 96365; 96367; 96375; 99285; C9113; G0378; J0744; J2270; J2405; J7030; J7512; Q9967; S0030

== ENCOUNTER → 2023-09-14 14:36 | Outpatient (BNVA) | payer MEDICARE, SELFPAY | PROVIDERS: PCP Family Medicine; Visit Provider Psychiatry & Neurology Neurology | DX: S06.5XAA Traumatic subdural hemorrhage with loss of consciousness status unknown, initial encounter (principal); H53.8 Other visual disturbances; H53.2 Diplopia; Y99.9 Unspecified external cause status | CPT/HCPCS: 99203 ==

== ENCOUNTER 2024-03-02 11:28 | Outpatient (CLI) | payer BC, SELFPAY ==
--- NOTE | 2024-03-02 11:34 | MR_ITS ---
WS: [id number] MRI BRAIN WITHOUT CONTRAST HISTORY: HX OF SUBDURAL HEMATOMA COMPARISON: CT head 05/03/2014 TECHNIQUE: Diffusion imaging, multiplanar T1, T2 and FLAIR imaging obtained. Normal diffusion imaging. There is no acute infarct. Moderate confluent periventricular white matter ischemic changes. Additional areas of scattered T2 and FLAIR signal hyperintensity within the white m atter. There are no prior large territory infarcts. No residual hemorrhage is identified. No subdural collection. Ventricles and extra-axial spaces are normal. No inferior displacement of cerebellar tonsils. The sella turcica and pituitary gland are unremarkabl e. Dural venous sinuses and knik of Bergeron demonstrate no abnormality on this unenhanced studies. Paranasal sinuses: Clear. Mastoid air cells: Moderate amount of fluid in the LEFT mastoid air cells. Calvarium and scalp: Intact. IMPRESSION: 1. No acute infarct. Normal diffusion sequence. 2. Moderate small vessel ischemic type changes in a periventricular distribution. 3. No residual subdural hematoma or hemosiderin.
== END 2024-03-02 11:29 | disposition home or self-care (01) ==
LOC: RAD 11:29
PROVIDERS: PCP Family Medicine; Visit Provider Family Medicine
DX: Z86.79 Personal history of other diseases of the circulatory system (principal)
CPT/HCPCS: 70551

== ENCOUNTER 2025-02-20 16:03 | Emergency (ER) | payer BC, MEDICARE, SELFPAY ==
[2025-02-20] VITALS (7 sets, daily range): BP systolic 123–152; BP diastolic 90–97; PULSE 85–91; RESP 15–26; TEMP 36.9; O2SAT 92–98; BMI 26.4
--- NOTE | 2025-02-20 16:23 | XRR_ITS ---
PROCEDURE INFORMATION: Exam: XR Right Shoulder Exam date and time: 02/20/2025 4:30 PM Age: 69 years old Clinical indication: Injury or trauma; Fall; Blunt trauma (contusions or hematomas); Shoulder; Right TECHNIQUE: Imaging protocol: Radiologic exam of the right shoulder. Views: 2 or more views. COMPARISON: No relevant prior studies available. FINDINGS: Bones/joints: Anterior shoulder dislocation. No evident fracture. Soft tissues: Normal. XR/XR shoulder RT min 2V* [id number] IMPRESSION: Anterior shoulder dislocation.
--- NOTE | 2025-02-20 16:23 | W.ED.EXTPRO ---
HPI - Extremity Problem General: Chief complaint: Extremity Injury, Upper Stated complaint: LT shoulder ink Time Seen by Provider: 02/20/25 16:08 Source: patient Mode of arrival: ambulatory Limitations: no limitations History of Present Illness: 69-year-old male states that he fell in his shop and landed on his right shoulder today. He has pain in his right shoulder along with difficulty moving his right shoulder. He denies any other injuries denies hitting his head denies any loss conscious denies any neck pain. Associated symptoms: Deny chest pain, fever(s) or rash Related Data Home Medications ?Medication ?Instructions ?Recorded ?Confirmed albuterol sulfate 90 mcg/actuation 2 puff inhalation Q4H PRN 07/16/22 02/20/25 aerosol inhaler (Ventolin HFA) Shortness Of Breath Or Wheezing citalopram 40 mg tablet 40 mg PO DAILY 07/16/22 02/20/25 fluconazole 200 mg tablet 200 mg PO DAILY 07/16/22 02/20/25 folic acid 1 mg tablet 1 mg PO DAILY 07/16/22 02/20/25 gabapentin 300 mg capsule 300 mg PO TID 07/16/22 02/20/25 omeprazole 20 mg capsule,delayed 20 mg PO BID 07/16/22 02/20/25 release tizanidine 4 mg capsule 4 mg PO TID 07/16/22 02/20/25 tramadol 50 mg tablet 50 mg PO Q6H 07/16/22 02/20/25 trazodone 50 mg tablet 50 mg PO DAILY 07/16/22 02/20/25 clonazepam 0.5 mg tablet 0.5 mg PO TID 09/14/23 02/20/25 methotrexate sodium 2.5 mg tablet See Rx Instructions .Route .COMPLEX 02/20/25 02/20/25 sumatriptan succinate 100 mg tablet 100 mg PO PRN PRN Migraine Headache 02/20/25 02/20/25 Previous Rx's ?Medication ?Instructions ?Recorded prednisone 5 mg tablet 10 mg (2 x 5 mg) PO BIDWM #30 tabs 07/18/22 Allergies Allergy/AdvReac Type Severity Reaction Status Date / Time No Known Allergies Allergy Verified 09/14/23 15:09 Review of Systems Const: Denies: fever(s), chills, body aches or change in appetite ENMT: Denies: throat pain or dental pain Card: Denies: chest pain Resp: Denies: dyspnea GI: Denies: abdominal pain, nausea, vomiting or diarrhea Musc: Reports: extremity pain; Denies: neck pain or back pain Skin/Breast: Denies: rash Neuro: Denies: headache(s) PFSH ED PFSH: Medical History COPD (chronic obstructive pulmonary disease) Osteoporosis Hyperlipidemia GERD (gastroesophageal reflux disease) DJD (degenerative joint disease) Depression with anxiety Rheumatoid arthritis No significant past medical history Surgical History No significant past surgical history Family History Other Diabetes Social History Smoking and tobacco/nicotine status: current every day tobacco/nicotine user Alcohol intake: never Substance/Drug Use: never Physical Exam Const: COMMON NORMALS: no acute distress, patient oriented x3 and healthy appearing HENMT: COMMON NORMALS: normocephalic and atraumatic HEAD & SCALP: normocephalic and atraumatic Eye: COMMON NORMALS: conjunctivae normal CONJUNCTIVA: Yes conjunctivae normal Neck/C-Spine: COMMON NORMALS: full ROM and supple Chest: COMMONS NORMALS: normal inspection of the chest and normal palpation of entire chest wall Resp: COMMON NORMALS: normal respiratory effort, No retractions, No use of accessory muscles and clear to auscultation bilaterally AUSCULTATION: clear to auscultation bilaterally Cardio: COMMON NORMALS: regular rate, regular rhythm and No murmurs present (Cardio) RATE: regular rate RHYTHM: regular rhythm Extremity: NARRATIVE EXTREMITY EXAM: Tenderness noted over right shoulder distal pulses sensation intact Neuro: COMMON NORMALS: patient oriented x3, moves all extremities and no focal motor deficits Psych: COMMON NORMALS: mental status grossly normal, Normal thought process present and cooperative THOUGHT PROCESS: Normal thought process present Skin: COMMON NORMALS: no rashes or lesions noted and no wounds GENERAL SKIN EXAM: no rashes or lesions noted Procedures Orthopedic Joint Reduction Joint #1: Time Out Performed: Yes Side: right Joint Reduction Location: shoulder Analgesia: procedural sedation Shoulder Technique Used (if applicable): external rotation Post-reduction neuro exam: intact Post-reduction vascular: intact Post Reduction X-Ray Obtained: Yes Post Reduction X-Ray Results: reduced Splint Applied: Yes Patient Tolerated Procedure: well Procedural Sedation Indication: fracture/dislocation reduction ASA Class: II Time of Last PO Intake: 13:00 Preparation: dry house attendant applied and pulse oximeter IV Propofol dose (mg): 60 Patient Tolerated Procedure: well Complications: none Course Vital Signs: Vital signs: Vital Signs Temperature 98.5 F 02/20/25 16:19 Pulse Rate 91 02/20/25 17:05 Respiratory Rate 15 02/20/25 17:05 Blood Pressure 139/97 02/20/25 17:10 Pulse Oximetry 97 02/20/25 17:10 Oxygen Delivery Me thod Nasal Cannula 02/20/25 17:10 Oxygen Flow Rate 3 02/20/25 17:10 MDM - Extremity (Nontraumatic) Medical Decision Making Patient presents for shoulder dislocation was able to successfully reduce the shoulder will get him follow-up with orthopedics return if worsening Medical Records I reviewed the patient's medical records. Lab Data Radiology Impressions Shoulder X-Ray 02/20/25 17:04 IMPRESSION: Successful reduction of previously noted anterior shoulder dislocation. All radiology interpretation(s) finalized by discharge Discharge Plan Discharge Patient Disposition: Home Clinical Impression: Dislocation of shoulder region Qualifiers: Encounter type: initial encounter Laterality: right Qualified Code(s): S43.004A - Unspecified dislocation of right shoulder joint, initial encounter Condition: Stable Prescriptions: No Action clonazepam 0.5 mg tablet 0.5 mg PO TID sumatriptan succinate 100 mg tablet 100 mg PO PRN PRN (Reason: Migraine Headache) methotrexate sodium 2.5 mg tablet See Rx Instructions .ROUTE .COMPLEX Rx Instructions: TAKE 5 TABLETS BY MOUTH ONCE A WEEK ON SATURDAYS AND SUNDAYS citalopram 40 mg tablet 40 mg PO DAILY trazodone 50 mg tablet 50 mg PO DAILY fluconazole 200 mg tablet 200 mg PO DAILY tramadol 50 mg tablet 50 mg PO Q6H gabapentin 300 mg capsule 300 mg PO TID omeprazole 20 mg capsule,delayed release(DR/EC) 20 mg PO BID folic acid 1 mg tablet 1 mg PO DAILY albuterol sulfate [Ventolin HFA] 90 mcg/actuation HFA aerosol inhaler 2 puff INHALATION Q4H PRN (Reason: Shortness Of Breath Or Wheezing) tizanidine 4 mg capsule 4 mg PO TID prednisone 5 mg tablet 10 mg PO BIDWM Qty: 30 0RF Discharge Orders: Discharge ED (Routine); Ordered 02/20/25 Ordered By: Javier Quan Referrals: Brian Hale MD [Physician] - 4-7 days Abel Moser MD [Primary Care Provider] - Discharge Diet: Advance as tolerated Discharge Activity: Resume usual activity Patient Instructions: Shoulder Dislocation (ED) Print Language: Taiwanese Coding Level of Care Code ED Stable Cleaner for Marcos Christina
[2025-02-20] MEDS: propofol 10 mg/mL SDV 20 mL 60 MG IVP (17:04)
--- NOTE | 2025-02-20 17:04 | XRR_ITS ---
PROCEDURE INFORMATION: Exam: XR Right Shoulder Exam date and time: 02/20/2025 5:04 PM Age: 69 years old Clinical indication: Other: Post reduction; Additional info: Shoulder reduction TECHNIQUE: Imaging protocol: Radiologic exam of the right shoulder. Views: 1 view. COMPARISON: CR (CHEST, ) 02/20/2025 4:30 PM FINDINGS: Bones/joints: Successful reduction of previously noted anterior shoulder dislocation. No acute fracture. Soft tissues: Normal. XR/XR shoulder RT 1V [id number] IMPRESSION: Successful reduction of previously noted anterior shoulder dislocation.
--- NOTE | 2025-02-21 11:42 | DCPLANNER ---
messaged ortho for er f/u
== END 2025-02-20 17:55 | disposition home or self-care (01) ==
PROVIDERS: Emergency Provider Emergency Medicine; PCP Family Medicine
DX: S43.004A Unspecified dislocation of right shoulder joint, initial encounter (principal); W19.XXXA Unspecified fall, initial encounter; J44.9 Chronic obstructive pulmonary disease, unspecified; Z72.0 Tobacco use
CPT/HCPCS: 23650; 73020; 73030; 99152; 99285; J2704

== ENCOUNTER 2025-02-21 21:16 | Inpatient (IN) | payer MEDICARE, SELFPAY ==
--- NOTE | 2025-02-21 21:20 | ECG_ITS ---
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 Measurements Intervals Caro Rate: 85 P: 19 CT: 151 QRS: -37 QRSD: 128 T: 95 QT: 347 QTc: 414 Interpretive Statements SINUS RHYTHM WITH OCCASIONAL VENTRICULAR PREMATURE COMPLEXES LEFT AXIS DEVIATION [QRS AXIS < -30] RIGHT BUNDLE BRANCH BLOCK [120+ ms QRS DURATION, UPRIGHT V1, 40+ ms S IN I/aVL/V4/V5/V6] LEFT VENTRICULAR HYPERTROPHY AND ST-T CHANGE [VOLTAGE CRITERIA PLUS ST/T ABNORMALITY] Nonspecific T wave changes Compared to ECG 08/24/2017 10:25:31 Ventricular premature complex(es) now present Left-axis deviation now present Left ventricular hypertrophy now present ST (T wave) deviation now present Electronically Signed On 02-24-2025 13:13:57 CDT by Neptali Quinonez M.D. [email or web address]
[2025-02-21 21:22] VITALS: BP 56/40; PULSE 90; RESP 15; BMI 26.4
[2025-02-21] MEDS: sodium chloride 0.9% 1,000 ML 999 ML IV ×3 (21:25→23:00)
[2025-02-21 21:27] LABS: Glucose Point of Care 110 mg/dL (70-110)
--- NOTE | 2025-02-21 21:29 | XRR_ITS ---
PROCEDURE INFORMATION: Exam: XR Chest Exam date and time: 02/21/2025 10:04 PM Age: 69 years old Clinical indication: Injury or trauma; Fall; Blunt trauma (contusions or hematomas); Additional info: Altered mental status TECHNIQUE: Imaging protocol: Radiologic exam of the chest. Views: 1 view. COMPARISON: CR (CHEST, ) 02/20/2025 5:04 PM FINDINGS: Lungs: Left basilar atelectasis. No focal consolidation. Pleural spaces: Unremarkable. No pleural effusion. No pneumothorax. Heart/Mediastinum: Unremarkable. No cardiomegaly. Bones/joints: Unremarkable. XR/XR chest 1V portable [id number] IMPRESSION: No acute cardiopulmonary findings.
--- NOTE | 2025-02-21 21:29 | CTR_ITS ---
PROCEDURE INFORMATION: Exam: CT Head Without Contrast Exam date and time: 02/21/2025 9:59 PM Age: 69 years old Clinical indication: Alteration of consciousness; Transient alteration of awareness; Additional info: Altered mental status TECHNIQUE: Imaging protocol: Computed tomography of the head without contrast. Radiation optimization: All CT scans at this facility use at least one of these dose optimization techniques: automated exposure control; mA and/or kV adjustment per patient size (includes targeted exams where dose is matched to clinical indication); or iterative reconstruction. COMPARISON: MR head wo con* [id number] 03/02/2024 11:40 AM RADIATION DOSE METRICS: Total DLP (mGy-cm): 1065.88 FINDINGS: Brain: Parenchymal volume loss with scattered white matter hyperintensities consistent with chronic microvascular ischemic changes. No acute intracranial hemorrhage, mass effect or midline shift. Cerebral ventricles: No ventriculomegaly. Paranasal sinuses: Diffuse opacification of right ethmoid sinus. Mastoid air cells: Visualized mastoid air cells are well aerated. Bones: Unremarkable. No acute fracture. Soft tissues: Unremarkable. CT/CT head wo con* [id number] IMPRESSION: No acute intracranial abnormality.
[2025-02-21 21:36] LABS: Basophils # 0.1 10^3/uL (0.0-0.1); Basophils % 0.2 %; Hematocrit 48.7 % (37-53); Lymphocytes # 14.4 10^3/uL (0.8-4.8); Lymphocytes % 67.8 %; Mean Corpuscular HGB Conc 31.8 g/dL (30-55); Mean Corpuscular Volume 100.4 fl (82-101); Mean Platelet Volume 8.9 fL (7.4-10.4); Monocytes # 0.7 10^3/uL (0.2-0.9); Monocytes % 3.4 %; Neutrophils # 5.97 10^3/uL (1.8-7.7); Neutrophils % 28.3 %; Nucleated Red Blood Cells % 0 %; Platelet Count 125 10^3/cmm (157-399); Red Blood Count 4.85 10^6/uL (3.85-5.65); Red Cell Distribution Width 16.2 % (12.1-15.1); White Blood Count 21.17 10^3/uL (3.29-11.43)
[2025-02-21 21:36] LABS: ABG PCO2 37.3 mmHg (35-45); ABG PH Result 7.35 (7.35-7.45); Alveolar-Arterial Oxygen Gradi 3.3 mmHg (5-10); Arterial Blood Gas Hematocrit 48.4 % (42-52); Base Excess ABG -4.6 mmol/L (-2.0-2.0); Blood Gas Allen Test Pos; Blood Gas Sample Site Radial, left; Blood Gas Sample Type Arterial; Carboxyhemoglobin 1.7 %THgb (0.4-20.1); HCO3 ABG 20.5 mmol/L (22-26); Ionized Calcium Level - ABG 1.2 mmol/L (1.1-1.4); Methemoglobin 1.1 % (0.4-1.5); Oxygen Device NC; Oxygen Saturation ABG 95.6; PO2 ABG 77.5 mmHg (80.0-100.0); Potassium Level - ABG 4.2 mmol/L (3.5-5.0); Total Hemoglobin 15.8 g/dL (14-18)
[2025-02-21] MEDS: naloxone 0.4 mg/ml SDV IVP (21:36)
--- NOTE | 2025-02-21 21:40 | W.ED.AMS ---
HPI - Altered Mental Status General: Chief Complaint: ER Hold Stated Complaint: unresponsive Time Seen by Provider: 02/21/25 21:36 History of Present Illness: Patient brought in by his with complaints of unresponsiveness. And confusion. Patient's said he went to bed around 7 PM and was normal other than battling a fever off and on all day today that responded with Tylenol and Motrin. No other complaints at that time. At 8:30 PM she went to check on him. And found him confused mumbling and just not quite acting right. Patient was seen in the ER yesterday for dislocated right shoulder. Patient does use tramadol clonazepam and gabapentin tizanidine and trazodone at home. Related Data Home Medications ?Medication ?Instructions ?Recorded ?Confirmed albuterol sulfate 90 mcg/actuation 2 puff inhalation Q4H PRN 07/16/22 02/20/25 aerosol inhaler (Ventolin HFA) Shortness Of Breath Or Wheezing citalopram 40 mg tablet 40 mg PO DAILY 07/16/22 02/20/25 fluconazole 200 mg tablet 200 mg PO DAILY 07/16/22 02/20/25 folic acid 1 mg tablet 1 mg PO DAILY 07/16/22 02/20/25 gabapentin 300 mg capsule 300 mg PO TID 07/16/22 02/20/25 omeprazole 20 mg capsule,delayed 20 mg PO BID 07/16/22 02/20/25 release tizanidine 4 mg capsule 4 mg PO TID 07/16/22 02/20/25 tramadol 50 mg tablet 50 mg PO Q6H 07/16/22 02/20/25 trazodone 50 mg tablet 50 mg PO DAILY 07/16/22 02/20/25 clonazepam 0.5 mg tablet 0.5 mg PO TID 09/14/23 02/20/25 methotrexate sodium 2.5 mg tablet See Rx Instructions .Route .COMPLEX 02/20/25 02/20/25 sumatriptan succinate 100 mg tablet 100 mg PO PRN PRN Migraine Headache 02/20/25 02/20/25 Previous Rx's ?Medication ?Instructions ?Recorded prednisone 5 mg tablet 10 mg (2 x 5 mg) PO BIDWM #30 tabs 07/18/22 Allergies Allergy/AdvReac Type Severity Reaction Status Date / Time No Known Allergies Allergy Verified 02/21/25 21:26 Review of Systems General: Reports: 10 or more systems reviewed and unremarkable except in HPI and below PFSH ED PFSH: Medical History COPD (chronic obstructive pulmonary disease) Osteoporosis Hyperlipidemia GERD (gastroesophageal reflux disease) DJD (degenerative joint disease) Depression with anxiety Rheumatoid arthritis No significant past medical history Surgical History No significant past surgical history Family History (Reviewed 02/22/25 @ :27 by Afia Vasquez MD) Other Diabetes Social History (Reviewed 02/22/25 @ :27 by Afia Vasquez MD) Smoking and tobacco/nicotine status: current every day tobacco/nicotine user Alcohol intake: never Substance/Drug Use: never Physical Exam Const: COMMON NORMALS: average body habitus, patient oriented x3, alert and well nourished HENMT: COMMON NORMALS: normocephalic, atraumatic, hearing grossly normal bilaterally, external ears normal, Normal external nose present, moist oral mucous membranes and oropharynx normal HEAD & SCALP: normocephalic and atraumatic NOSE: Normal external nose present EXTERNAL EAR: Yes external ears normal Eye: COMMON NORMALS: Equal, round and reactive pupils present, EOMs intact bilaterally, conjunctivae normal and no scleral icterus CONJUNCTIVA: Yes conjunctivae normal PUPIL: Yes Equal, round and reactive pupils present Neck/C-Spine: COMMON NORMALS: full ROM, no lymphadenopathy, supple, no meningeal signs and no JVD Chest: COMMONS NORMALS: normal inspection of the chest and normal palpation of entire chest wall Resp: COMMON NORMALS: normal respiratory effort, No retractions, No use of accessory muscles and clear to auscultation bilaterally AUSCULTATION: clear to auscultation bilaterally Cardio: COMMON NORMALS: no JVD, regular rate, regular rhythm, S1 normal heart sound present, S2 normal heart sound present, No gallops present (Cardio), No clicks present (Cardio) and No murmurs present (Cardio) RATE: regular rate RHYTHM: regular rhythm HEART SOUNDS: S1 normal heart sound present and S2 normal heart sound present GI: COMMON NORMALS: Normal to inspection, nondistended, normoactive bowel sounds present, Soft to palpation, non-tender, No hepatosplenomegaly present and no masses PALPATION: Yes Soft to palpation and Yes No hepatosplenomegaly present Extremity: OTHER: Weak in all extremities but symmetric bilaterally Neuro: COMMON NORMALS: patient oriented x3 SENSORIUM/ORIENTATION: Yes alert MENINGEAL SIGNS: Yes no meningeal signs Urinary Catheter Management: Amaya: Cath Placed During This Visit: yes Urinary Catheter Date of Insertion: 02/21/25 Urinary Catheter Time of Insertion: 21:38 Procedures Central Line Placement Right IJ: Time Out Performed: Yes Patient Placed on Monitor/Pulse Ox: Yes MD Prep: mask, gown and gloves Central Line Prep: Chlorhexidine scrub and sterile drapes applied Local Anesthetic: lidocaine 1% Amount of anesthesia used (mL): 3 Ultrasound Used for Placement: Yes Central Line Lumen Inserted: triple Post Procedure: sutured in place, good blood return, all ports aspirated, flushed, capped and sterile dressing applied Post Procedure X-Ray: tip of catheter in good position and no pneumothorax seen Patient Tolerated Procedure: well and no complications Course Vital Signs: Vital signs: Vital Signs Temperature 98.9 F 02/22/25 01:07 Pulse Rate 108 H 02/22/25 00:12 Respiratory Rate 29 H 02/21/25 23:48 Blood Pressure 91/56 02/22/25 01:04 Pulse Oximetry 97 02/22/25 00:12 Oxygen Delivery Me thod Nasal Cannula 02/21/25 23:48 Oxygen Flow Rate 5 02/21/25 23:48 MDM - Altered Mental Status Medical Decision Making Upon arrival patient was hypotensive, mildly altered, sedate appearing. Patient's blood pressure was low at 50/40. Bilateral IVs was obtained, fluid bolus was started. Lab work was obtained patient ended up having a septic type lab work with white blood cell count of 21, BUN/creatinine of 23/2.3, lactic acid 6.3, troponin 67, CRP 189, EKG no ST changes, chest x-ray head CT negative, urine drug screen positive for opiates. Patient was placed on Levophed and titrated up per protocol. Dr. Vasquez was consulted who agreed to place patient in ICU for further evaluation and treatment. Medical Records I reviewed the patient's medical records. Lab Data I reviewed the patient's lab results. 02/21/25 21:22 02/21/25 21:22 Radiology Impressions Chest X-Ray 02/21/25 21:29 IMPRESSION: No acute cardiopulmonary findings. Head CT 02/21/25 21:29 IMPRESSION: No acute intracranial abnormality. Abdomen/Pelvis CT 02/21/25 23:59 IMPRESSION: 1. Multiple bilateral punctate renal calculi as large as 4 mm. 2. The bladder is entirely decompressed by Amaya catheter and therefore, not evaluated. No obstructive ureteral calculi. 3. Minimal mesenteric stranding around the terminal and distal ileum. This is of uncertain etiology, possibly reflecting a very mild enteritis/distal ileitis. 4. Moderate diverticulosis is present in the left colon without acute diverticulitis. COMMENTS: Consistent with the [employer]'s Incidental Findings Committee white paper (J Am Gill Radiol 2018): Any incidental renal lesion less than 1 cm or classified as too small to characterize, or any incidental cystic renal lesion characterized as simple-appearing, is likely benign. No follow-up imaging is recommended for these lesions per consensus recommendations based on imaging criteria. Laboratory Results WBC 21.17 10^3/uL (3.29-11.43) H 02/21/25 21:22 RBC 4.85 10^6/uL (3.85-5.65) 02/21/25 21:22 Hgb 15.50 g/dL (11.27-16.99) 02/21/25 21:22 Hct 48.7 % (37-53) 02/21/25 21:22 MCV 100.4 fl (82-101) 02/21/25 21:22 MCH 32.0 pg (27-33) 02/21/25 21:22 MCHC 31.8 g/dL (30-55) 02/21/25 21:22 RDW 16.2 % (12.1-15.1) H 02/21/25 21:22 Plt Count 125 10^3/cmm (157-399) L 02/21/25 21:22 MPV 8.9 fL (7.4-10.4) 02/21/25 21:22 Neut % (Auto) 28.3 % 02/21/25 21:22 Lymph % (Auto) 67.8 % 02/21/25 21:22 Wright % (Auto) 3.4 % 02/21/25 21:22 Eos % (Auto) 0.0 % 02/21/25 21:22 Baso % (Auto) 0.2 % 02/21/25 21:22 Neut # (Auto) 5.97 10^3/uL (1.8-7.7) 02/21/25 21:22 Lymph # (Auto) 14.4 10^3/uL (0.8-4.8) H 02/21/25 21:22 Wright # (Auto) 0.7 10^3/uL (0.2-0.9) 02/21/25 21:22 Eos # (Auto) 0.0 10^3/uL (0.0-0.8) 02/21/25 21:22 Baso # (Auto) 0.1 10^3/uL (0.0-0.1) 02/21/25 21:22 Nucleated RBC % (auto) 0 % 02/21/25 21: Nucleated RBCs # 0.0 /100WBC 02/21/25 21: PT 15.70 SECONDS (12.1-14.9) H 02/21/25 21: INR 1.17 (0.8-1.2) 02/21/25 21: Specimen Type Arterial 02/21/25: Sample Site Radial, left 02/21/25: ABG pH 7.35 (7.35-7.45) 02/21/25: ABG pCO2 37.3 mmHg (35-45) 02/21/25: ABG pO2 77.5 mmHg (80.0-100.0) L 02/21/25: ABG HCO3 20.5 mmol/L (22-26) L 02/21/25: ABG O2 Saturation 95.6 02/21/25: ABG Base Excess -4.6 mmol/L (-2.0-2.0) L 02/21/25: Will Test Pos 02/21/25: A-a O2 Gradient 3.3 mmHg (5-10) L 02/21/25: Hematocrit 48.4 % (42-52) 02/21/25: Hgb O2 Saturation 93.0 % (95-100) L 02/21/25: Carboxyhemoglobin 1.7 %THgb (0.4-20.1) 02/21/25 21:26 Methemoglobin 1.1 % (0.4-1.5) 02/21/25 21:26 Total Hemoglobin 15.8 g/dL (14-18) 02/21/25 21:26 Sodium 138.0 mmol/L (131-143) 02/21/25 21:26 Potassium 4.2 mmol/L (3.5-5.0) 02/21/25:26 Glucose 101.0 mg/dL (70-115) 02/21/25 21:26 Ionized Calcium 1.2 mmol/L (1.1-1.4) 02/21/25 21:26 O2 Delivery Device Nc 02/21/25 21:26 O2 Liters/Min 5.0 % 02/21/25 21: Assembly Instructions Writer ID [email or web address] 02/21/25 21:26 Sodium 138 mmol/L (136-145) 02/21/25 21:22 Potassium 4.8 mmol/L (3.5-5.1) 02/21/25 21:22 Chloride 98 mmol/L (98-107) 02/21/25 21:22 Carbon Dioxide 20 mmol/L (22-29) L 02/21/25 21:22 Anion Gap 24.8 (5-19) H 02/21/25 21:22 BUN 23 mg/dL (8-23) 02/21/25 21:22 Creatinine 2.3 mg/dL (0.7-1.2) H 02/21/25 21:22 GFR Calculation 28.3 mL/min (90-130) L 02/21/25 21:22 Glucose 96 mg/dL (65-115) 02/21/25 21:22 POC Glucose 110 mg/dL (70-110) 02/21/25 21:21 Calculated Osmolality 290 mOsm/kg (285-295) 02/21/25 21:22 Lactic Acid 6.3 mmol/L (0.5-2.2) H* 02/21/25 21:22 Lactic Acid (Sepsis) 3.0 mmol/L (0.5-2.2) H 02/21/25 23:05 Calcium 9.3 mg/dL (8.5-10.5) 02/21/25 21:22 Magnesium 2.0 mg/dL (1.7-2.3) 02/21/25 21:22 Total Bilirubin 1.3 mg/dL (0.15-1.2) H 02/21/25 21:22 AST 24 U/L (0-40) 02/21/25 21:22 ALT 14 U/L (0-41) 02/21/25 21:22 Alkaline Phosphatase 105 U/L (40-130) 02/21/25 21:22 Troponin T Baseline 67 ng/L (0-15) H 02/21/25 21:22 Troponin T 120 Minute 46.76 ng/L (0-15) H 02/21/25 23:05 Delta Troponin T -20.24 ABS# (0-10) L 02/21/25 23:05 C-Reactive Protein 189.3 mg/L (0.0-4.9) H 02/21/25 21:22 Total Protein 7.0 g/dL (6.6-8.7) 02/21/25 21:22 Albumin 3.8 g/dL (3.5-5.2) 02/21/25 21:22 Globulin 3.2 g/dL (1.3-4.6) 02/21/25 21:22 Procalcitonin 14.71 ng/mL (0-0.5) H 02/21/25 21:22 TSH 3.63 uIU/mL (0.27-4.20) 02/21/25 21:22 Urine Color Yellow (Yellow) 02/21/25 21:26 Urine Appearance Clear (CLEAR) 02/21/25 21: Urine pH 5 (5-7) 02/21/25 21:26 Ur Specific [place] 1.007 (1.005-1.030) 02/21/25 21:26 Urine Protein Trace (Negative) 02/21/25 21: Urine Glucose (UA) Norm (Normal) 02/21/25 21: Urine Ketones Negative (Negative) 02/21/25 21: Urine Blood 2+ (Negative) H 02/21/25 21:26 Urine Nitrate Negative (Negative) 02/21/25 21: Urine Bilirubin Neg (Negative) 02/21/25 21: Urine Urobilinogen 8 mg/dL (Negative) H 02/21/25 21:26 Ur Leukocyte Esterase Negative (Negative) 02/21/25 21:26 Urine RBC 11-20 /hpf (0-2) H 02/21/25 21:26 Urine WBC 11-20 /hpf (0-5) H 02/21/25 21:26 Ur Squamous Epith Cells 0-5 /hpf (0-5) 02/21/25 21:26 Amorphous Sediment Not Reportable 02/21/25 21:26 Urine Bacteria None seen /hpf (NONE) 02/21/25 21:26 Hyaline Casts 0.81 /lpf 02/21/25 21:26 Urine Opiates Screen Positive ng/mL (Negative) H 02/21/25 21:26 Ur Barbiturates Screen Negative ng/mL (Negative) 02/21/25 21:26 Ur Phencyclidine Scrn Negative ng/mL (Negative) 02/21/25 21:26 Ur Amphetamines Screen Negative ng/mL (Negative) 02/21/25 21:26 U Benzodiazepines Scrn Negative ng/mL (Negative) 02/21/25 21:26 Urine Cocaine Screen Negative ng/mL (Negative) 02/21/25 21:26 U Marijuana (THC) Screen Negative ng/mL (Negative) 02/21/25 21:26 Ethyl Alcohol < 10 mg/dL (0-10) 02/21/25 21:22 All radiology interpretation(s) finalized by discharge Critical Care Time Critical Care Time: Critical Care Time: Yes Total Critical Care Time: 60 Attestation: The patient was emergently evaluated this patient's presentation and case had a high probability of a clinically significant, sudden, or life-threatening deterioration of the patient's initial critical presentation or condition which required my full and direct attention, intervention and personal management. Discharge Plan Discharge Patient Disposition: Admitted As Inpatient Admit Provider: Afia Vasquez Clinical Impression: Septic shock, Acute kidney injury, Elevated troponin Condition: Stable Coding Level of Care Code ED Equipment Maintenance Supervisor for Marcos Christina
[2025-02-21] MEDS: norepinephrine 4 MG/250 ML BAG 30 MG IV (21:42)
[2025-02-21 21:45] LABS: INR 1.17 (0.8-1.2)
[2025-02-21 21:48] LABS: Add Urine Microscopic? NO
[2025-02-21 21:51] VITALS: BP 88/68; PULSE 90; RESP 29; O2SAT 95
[2025-02-21 21:51] LABS: Troponin(5th) Baseline 67 ng/L (0-15)
[2025-02-21 21:57] LABS: Lactic Sepsis W/Reflex 6.3 mmol/L (0.5-2.2)
[2025-02-21 22:00] LABS: Bacteria Urine None Seen /hpf; Hyaline Casts Urine 0.81 /lpf; Squamous Epithelial Cell Urine 0-5 /hpf (0-5)
[2025-02-21 22:01] LABS: Procalcitonin 14.71 ng/mL (0-0.5); Thyroid Stimulating Hormone 3.63 uIU/mL (0.27-4.20)
[2025-02-21 22:05] LABS: Amphetamines Screen Urine Negative (Negative); Barbiturates Screen Urine Negative (Negative); Benzodiazepines Screen Urine Negative (Negative); Cocaine Screen Urine Negative (Negative); Opiate Screen Urine Positive (Negative); PCP Screen Urine Negative (Negative); THC Screen Urine Negative (Negative)
[2025-02-21 22:10] LABS: Bilirubin Urine Neg (Negative); Blood Urine 2+ (Negative); Glucose Urine UA Norm (Normal); Ketones Urine Negative (Negative); Leukocyte Esterase Urine Negative (Negative); Nitrate Urine Negative (Negative); Protein Urine Trace (Negative); Specific Gravity, Urine 1.007 (1.005-1.030); Urine Appearance Clear (CLEAR); Urine Color Yellow (Yellow); Urobilinogen Urine 8 mg/dL (Negative); pH Urine 5 (5-7)
[2025-02-21 22:11] VITALS: BP 86/49; PULSE 92; RESP 22
[2025-02-21 22:12] LABS: Charge for UA Resulting for Rev
[2025-02-21 22:12] LABS: Alanine Aminotransferase 14 U/L (0-41); Albumin Level 3.8 g/dL (3.5-5.2); Alkaline Phosphatase 105 U/L (40-130); Anion Gap 24.8 (5-19); Aspartate Amino Transferase 24 U/L (0-40); Blood Urea Nitrogen 23 mg/dL (8-23); C Reactive Protein 189.3 mg/L (0.0-4.9); Calcium 9.3 mg/dL (8.5-10.5); Carbon Dioxide 20 mmol/L (22-29); Chloride 98 mmol/L (98-107); Creatinine Clr Calc Pharmacy 29.1699; Globulin 3.2 g/dL (1.3-4.6); Glomerular Filtration Rate 28.3 mL/min (90-130); Glucose 96 mg/dL (65-115); Osmolality Calculated 290 mOsm/kg (285-295); Potassium 4.8 mmol/L (3.5-5.1); Sodium 138 mmol/L (136-145); Total Bilirubin 1.3 mg/dL (0.15-1.2)
[2025-02-21 22:16] LABS: Alcohol Level < 10 mg/dL (0-10)
[2025-02-21 22:22] LABS: Add Urine Culture? Yes
[2025-02-21 22:37] VITALS: BP 80/46; PULSE 99; RESP 18
[2025-02-21 23:20] LABS: Reflex Lactate Order REFLEX LACTIC ORDERD
[2025-02-21 23:26] VITALS: BP 100/65; PULSE 104; RESP 18; O2SAT 95
--- NOTE | 2025-02-21 23:28 | ECG_ITS ---
[facility] 2025[facility]21 Pat Name: Jc Roberson Department: Room: EDIP Gender: Male Desk Interviewer: : 1955 Requested By: Brandin Marcum Order Number: [id number] Lisa MD: Neptali Quinonez M.D. Measurements Intervals [place] Rate: 110 P: 7 AL: 151 QRS: -32 QRSD: 122 T: 73 QT: 359 QTc: 487 Interpretive Statements SINUS TACHYCARDIA WITH OCCASIONAL SUPRAVENTRICULAR PREMATURE COMPLEXES LEFT AXIS DEVIATION [QRS AXIS < -30] RIGHT BUNDLE BRANCH BLOCK [120+ ms QRS DURATION, UPRIGHT V1, 40+ ms S IN I/aVL/V4/V5/V6] MODERATE VOLTAGE CRITERIA FOR LVH, CONSIDER NORMAL VARIANT [MEETS CRITERIA IN ONE OF: R(aVL), S(V1), R(V5), R(V5/V6)+S(V1)] Compared to ECG 02/21/2025 21:20:40 Sinus rhythm no longer present Ventricular premature complex(es) no longer present ST (T wave) deviation no longer present Electronically Signed On 02-24-2025 13:32:29 CDT by Neptali Quinonez M.D. [email or web address]
[2025-02-21 23:48] VITALS: BP 117/63; PULSE 112; RESP 29; O2SAT 91
--- NOTE | 2025-02-21 23:55 | PM.HP ---
Providers/Chief Complaint Admitting Physician: Afia Vasquez MD Primary Care Provider: Abel Moser MD Chief Complaint: unresponsive History of Present Illness Jc Roberson is a 69 year old male with history of rheumatoid arthritis, anemia, diverticulitis, presented to the hospital with chief complaint of generalized weakness, fatigue, confusion. Patient was seen in the ER yesterday as well for dislocated right shoulder. As per the Jc has been dealing with low-grade fever for last 24 to 48 hours. His fever subsided with use of Tylenol and Motrin. They went to bed around 7 PM, around 8:30 PM when his checked on him, he was a bit confused, was mumbling his words that prompted his visit to the ER. At the time of my evaluation patient is awake and alert, GCS 15 NIH 0, patient is stating that he fell few weeks ago and injured his right shoulder, it was reduced by the ER physician last night patient does take muscle relaxer, opioids on as-needed basis, endorses to smoking and occasional drinking, does not endorse recreational drugs. Patient is denying any nausea, vomiting, diarrhea abdominal pain dysuria headache, blurry vision or neck pain. Workup in the ER consistent with septic shock, he was put on Levophed, was given broad-spectrum antibiotics after septic bolus, he does have pyuria, I have requested CT abdomen pelvis without contrast, I requested central line placement Review of Systems Const: Reports: fever(s) and chills Eyes: Denies: change in vision ENMT: Denies: throat pain Card: Denies: chest pain Resp: Denies: dyspnea GI: Denies: abdominal pain : Denies: flank pain Musc: Reports: back pain Medications/Allergies Home Medications ?Medication ?Instructions ?Recorded ?Confirmed ?Last Taken ?Type albuterol sulfate 90 mcg/actuation 2 puff inhalation Q4H PRN 07/16/22 02/20/25 Unknown History aerosol inhaler (Ventolin HFA) Shortness Of Breath Or Wheezing citalopram 40 mg tablet 40 mg PO DAILY 07/16/22 02/20/25 02/20/25 History fluconazole 200 mg tablet 200 mg PO DAILY 07/16/22 02/20/25 Unknown History folic acid 1 mg tablet 1 mg PO DAILY 07/16/22 02/20/25 02/20/25 History gabapentin 300 mg capsule 300 mg PO TID 07/16/22 02/20/25 02/20/25 History omeprazole 20 mg capsule,delayed 20 mg PO BID 07/16/22 02/20/25 02/20/25 History release tizanidine 4 mg capsule 4 mg PO TID 07/16/22 02/20/25 02/20/25 History tramadol 50 mg tablet 50 mg PO Q6H 07/16/22 02/20/25 02/20/25 History trazodone 50 mg tablet 50 mg PO DAILY 07/16/22 02/20/25 02/20/25 History prednisone 5 mg tablet 10 mg (2 x 5 mg) PO BIDWM #30 tabs 07/18/22 02/20/25 02/20/25 Rx clonazepam 0.5 mg tablet 0.5 mg PO TID 09/14/23 02/20/25 02/20/25 History methotrexate sodium 2.5 mg tablet See Rx Instructions .Route .COMPLEX 02/20/25 02/20/25 Unknown History sumatriptan succinate 100 mg tablet 100 mg PO PRN PRN Migraine Headache 02/20/25 02/20/25 Unknown History Allergies Allergy/AdvReac Type Severity Reaction Status Date / Time No Known Allergies Allergy Verified 02/21/25 21:26 PFSH Acute PFSH: Medical History COPD (chronic obstructive pulmonary disease) Osteoporosis Hyperlipidemia GERD (gastroesophageal reflux disease) DJD (degenerative joint disease) Depression with anxiety Rheumatoid arthritis No significant past medical history Surgical History No significant past surgical history Family History Other Diabetes Social History Smoking and tobacco/nicotine status: current every day tobacco/nicotine user Alcohol intake: never Substance/Drug Use: never Vitals/I&O/Wt Last Vital Signs Pulse 112 H 02/21/25 23:48 Resp 29 H 02/21/25 23:48 BP 117/63 02/21/25 23:48 Pulse Ox 91 02/21/25 23:48 O2 Del Method Nasal Cannula 02/21/25 23:48 O2 Flow Rate 5 02/21/25 23:48 02/21/25 02/21/25 02/22/25 14:59 22:59 06:59 Intake Total 1032.875 / 0389.815 7507.125 / 2052.000 Balance 1032.875 / 4249.212 8356.125 / 2052.000 Weight last 48 hrs Weight 74.389 kg Physical Exam Narrative: Patient is awake and alert No active sign of meningitis Currently on 3 L nasal cannula No active wheezing Abdomen distended but soft Lower extremity bruises noted Patient able to move all of his extremities Weak and lethargic AO x 4 NIH 0 GCS 15 Limited range of motion right shoulder Amaya catheter in place with concentrated urine Urinary Catheter Management: Amaya: Cath Placed During This Visit: yes Urinary Catheter Date of Insertion: 02/21/25 Urinary Catheter Time of Insertion: 21:38 Data 02/21/25 21:22 02/21/25 21:22 Micro: Microbiology 02/21/25 21:32 Blood Culture - Preliminary Blood SPECIMEN COLLECTED 02/21/25 21:22 Blood Culture - Preliminary Blood SPECIMEN COLLECTED A&P Assessment and plan (1) Elevated troponin: (2) Acute kidney injury: (3) Septic shock: (4) Rheumatoid arthritis: (5) Dislocation of shoulder region: Qualifiers: Encounter type: initial encounter Laterality: right Qualified Code(s): S43.004A - Unspecified dislocation of right shoulder joint, initial encounter Plan Septic shock Criteria met with tachypnea and tachycardia of leukocytosis and endorgan damage Septic bolus administered Blood culture urine culture taken Nonobstructing kidney stone noted on CT abdomen pelvis enteritis/ileitis Will use Levophed for septic shock Source seems to be UTI Patient able to answer simple questions Patient has been started on vancomycin and meropenem Chronic steroid user, will give stress dose steroids Patient does not have active signs of meningitis No signs of stroke, Acute kidney injury Related to septic shock Will request Amaya catheter placement hold methotrexate Rheumatoid arthritis: Hold DMARDs COPD: Does not use oxygen at home, active smoker Currently requiring 3 L. Chest x-ray unremarkable Sepsis induced thrombocytopenia: Monitor for now History of diverticulosis: No acute abdominal pain Full code Cardiac diet Check prolactin along procalcitonin Check TSH and B12 Admit to ICU for septic shock Right shoulder dislocation, reduced by the ER physician 24 hours ago, limited range of motion, no vascular compromise, patient complaining of mild numbness, may need orthopedic consultation in the morning Requested central line placement by ER physician PDMP PDMP Reviewed: Not Reviewed Attestations Medical Necessity Statement*: Admit to ICU more than 2 midnights anticipated Diagnoses Elevated troponin R79.89 Acute kidney injury N17.9 Septic shock A41.9; R65.21 Rheumatoid arthritis M06.9 Dislocation of shoulder region S43.004A Encounter type: initial encounter Laterality: right
[2025-02-21 23:58] LABS: Troponin 5 2HR 46.76 ng/L (0-15)
[2025-02-21 23:59] LABS: Troponin 5 2HR Delta -20.24 ABS# (0-10)
--- NOTE | 2025-02-21 23:59 | CTR_ITS ---
PROCEDURE INFORMATION: Exam: CT Abdomen And Pelvis Without Contrast Exam date and time: 02/22/2025 12:25 AM Age: 69 years old Clinical indication: Abdominal tenderness and fever and nausea; Additional info: UTI TECHNIQUE: Imaging protocol: Computed tomography of the abdomen and pelvis without contrast. Radiation optimization: All CT scans at this facility use at least one of these dose optimization techniques: automated exposure control; mA and/or kV adjustment per patient size (includes targeted exams where dose is matched to clinical indication); or iterative reconstruction. COMPARISON: CT abdomen pelvis w con* [id number] 11/23/2021 09:45 RADIATION DOSE METRICS: Total DLP (mGy-cm): 770.74 FINDINGS: Lungs: There are mild bibasilar atelectatic changes. Liver: Normal size and homogeneous density. No liver mass is seen. Gallbladder and biliary ducts: No calcified gallstones. No ductal dilation. Pancreas: Normal size and homogeneous density. No ductal dilation. Spleen: Normal. No splenomegaly. Adrenal glands: Normal. No mass. Kidneys and ureters: No hydronephrosis. Multiple bilateral punctate renal calculi as large as 4 mm. There are no obstructive ureteral calculi. Multiple bilateral simple appearing renal cysts. Stomach and bowel: There are no abnormally dilated loops of bowel. Moderate diverticulosis is present in the left colon without acute diverticulitis. Appendix: A normal appendix is identified. Intraperitoneal space: Minimal mesenteric stranding around the terminal ileum. Vasculature: No abdominal aortic aneurysm. Lymph nodes: No enlarged retroperitoneal or mesenteric lymph nodes. Urinary bladder: The bladder is entirely decompressed by Amaya catheter. Reproductive: Unremarkable as visualized. Bones/joints: No acute fracture. Moderate chronic compression fractures of L2 and T10. Severe chronic superior endplate compression fracture of L1. These fractures show no significant change from the comparison study. Soft tissues: Unremarkable. CT/CT abdomen pelvis wo con [id number] IMPRESSION: 1. Multiple bilateral punctate renal calculi as large as 4 mm. 2. The bladder is entirely decompressed by Amaya catheter and therefore, not evaluated. No obstructive ureteral calculi. 3. Minimal mesenteric stranding around the terminal and distal ileum. This is of uncertain etiology, possibly reflecting a very mild enteritis/distal ileitis. 4. Moderate diverticulosis is present in the left colon without acute diverticulitis. COMMENTS: Consistent with the [employer]'s Incidental Findings Committee white paper (J Am Gill Radiol 2018): Any incidental renal lesion less than 1 cm or classified as too small to characterize, or any incidental cystic renal lesion characterized as simple-appearing, is likely benign. No follow-up imaging is recommended for these lesions per consensus recommendations based on imaging criteria.
[2025-02-22] VITALS (123 sets, daily range): BP systolic 88–139; BP diastolic 54–93; PULSE 98–116; RESP 14–42; TEMP 37.2–39.9; O2SAT 83–97; BMI 28.7
[2025-02-22] MEDS: piperacillin-tazobactam 3.375 GM in sodium chloride 0.9% (plus) 50 ML IV (00:04)
[2025-02-22 00:17] LABS: Influenza A NEGATIVE (Negative); Influenza B NEGATIVE (Negative); Respiratory Syncytial Virus Ce NEGATIVE (Negative); SARS-CoV-2 PCR NEGATIVE (Negative)
[2025-02-22] MEDS: sodium chloride 0.9% 1,000 ML 999 ML IV (00:18)
--- NOTE | 2025-02-22 00:18 | PC.NURSE ---
Dr Vasquez notified of last blood pressures. Order given for 1L NS bolus.
--- NOTE | 2025-02-22 00:44 | PC.NURSE ---
Written concent for central line placement obtained and witnessed by this nurse.
--- NOTE | 2025-02-22 01:34 | XRR_ITS ---
PROCEDURE INFORMATION: Exam: XR Chest Exam date and time: 02/22/2025 1:34 AM Age: 69 years old Clinical indication: Device placement; Other: Central line placement TECHNIQUE: Imaging protocol: Radiologic exam of the chest. Views: 1 view. COMPARISON: CR (CHEST, ) 07/19/2025 22:04 FINDINGS: Tubes, catheters and devices: Right internal jugular central venous line with its tip in the right atrium. Lungs: There is no consolidation. Pleural spaces: No pleural effusion or pneumothorax. Heart/Mediastinum: The heart and mediastinum are normal in size. Bones/joints: No acute fracture. Anterior subluxation of the right shoulder. XR/XR chest 1V portable [id number] IMPRESSION: 1. Right internal jugular central venous line with its tip in the right atrium. 2. Anterior subluxation of the right shoulder.
--- NOTE | 2025-02-22 01:52 | USCV_ITS ---
Jc Roberson Age: 69 Gender: M : 1955 Exam Date: 02/22/2025 02:00 Ordering Phys: Afia Vasquez MD Technologist: TANO Exam Location: [facility] – [place] Indication: pyuria, sepsis, weakness, confusion, low-grade fever, tobaccoism BP: 91 / 56 HR: 92 Rhythm: Sinus Technical Quality: Adequate MEASUREMENTS (Male / Female) Normal Values 2D ECHO LVOT Diameter 1.9 cm LV Ejection Fraction MOD 4C 59.4 % LV Ejection Fraction MOD 2C 49.7 % LV Ejection Fraction 2C AL 55.3 % LA Diameter 3.7 cm Aorta at Sinotubular Diameter 2.9 cm IVC Diameter 1.7 cm M-MODE LA Ao Ratio MM 1.2 AV Cusp Separation MM 2.0 cm DOPPLER AV Peak Velocity 158.0 cm/s LVOT Peak Velocity 110.0 cm/s AV Area Cont Eq vti 2.3 cm squared AV Area Cont Eq pk 2.0 cm squared MV Peak Velocity 90.0 cm/s MV Area PHT 5.1 cm squared Mitral E to A Ratio 0.8 TV Peak E Velocity 43.0 cm/s PV Peak Velocity 86.0 cm/s FINDINGS Left Ventricle Normal left ventricular size, systolic function and wall thickness, with no regional wall motion abnormalities. Left ventricular ejection fraction is estimated at 60 %. Grade I/IV diastolic dysfunction (abnormal relaxation filling pattern), normal to mildly elevated filling pressures. Right Ventricle The right ventricle is normal in size and function. Right Atrium The right atrium is normal in size. Left Atrium The left atrium is normal in size. Mitral Valve Moderately thickened mitral valve. Mild mitral annular calcification. Trace mitral valve regurgitation. Aortic Valve Moderate aortic valve calcification. No aortic valve stenosis. Trace aortic valve regurgitation. Tricuspid Valve Mild tricuspid valve regurgitation. Pulmonic Valve Structurally normal pulmonic valve without significant stenosis. There is no pulmonic regurgitation. Pericardium Normal pericardium without effusion. Aorta Normal ascending aorta dimension. IVC The inferior vena cava appears normal. CONCLUSIONS Normal left ventricular size, systolic function and wall thickness, with no regional wall motion abnormalities. Left ventricular ejection fraction is estimated at 60 %. Grade I/IV diastolic dysfunction (abnormal relaxation filling pattern), normal to mildly elevated filling pressures. No significant valve abnormalities. There is no pericardial effusion. Right atrial pressure is around 5 mm of mercury. Afia Zamarripa MD (Electronically Signed) Final Date: 22 February 2025 22:12 S
[2025-02-22 02:38] LABS: Thyroid Stimulating Hormone 2.28 uIU/mL (0.27-4.20)
[2025-02-22 02:43] LABS: Vitamin B12 > 2000 pg/mL (232-1245)
--- NOTE | 2025-02-22 03:28 | ECG_ITS ---
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 Measurements Intervals [place] Rate: 105 P: 24 PA: 157 QRS: -44 QRSD: 121 T: 75 QT: 339 QTc: 449 Interpretive Statements SINUS TACHYCARDIA LEFT AXIS DEVIATION [QRS AXIS < -30] RIGHT BUNDLE BRANCH BLOCK [120+ ms QRS DURATION, UPRIGHT V1, 40+ ms S IN I/aVL/V4/V5/V6] Compared to ECG 02/21/2025 23:50:10 No significant changes Electronically Signed On 02-24-2025 13:30:43 CDT by Neptali Quinonez M.D. [email or web address]
[2025-02-22] MEDS: hydrocortisone 100 mg/2 mL SDV IVP ×2 (03:32→12:22)
[2025-02-22] MEDS: sodium chloride 0.9% 1,000 ML 75 ML IV (03:32)
[2025-02-22 04:32] LABS: Basophils % 0.2 %; Hematocrit 44.6 % (37-53); Lymphocytes # 4.2 10^3/uL (0.8-4.8); Lymphocytes % 50.2 %; Mean Corpuscular HGB Conc 31.8 g/dL (30-55); Mean Corpuscular Hemoglobin 32.6 pg (27-33); Mean Corpuscular Volume 102.5 fl (82-101); Mean Platelet Volume 9.2 fL (7.4-10.4); Monocytes # 0.5 10^3/uL (0.2-0.9); Monocytes % 6.1 %; Neutrophils # 3.57 10^3/uL (1.8-7.7); Nucleated Red Blood Cells % 0 %; Platelet Count 120 10^3/cmm (157-399); Red Blood Count 4.35 10^6/uL (3.85-5.65); Red Cell Distribution Width 16.3 % (12.1-15.1); White Blood Count 8.32 10^3/uL (3.29-11.43)
[2025-02-22 04:52] LABS: Blood Urea Nitrogen 27 mg/dL (8-23); C Reactive Protein 201.7 mg/L (0.0-4.9); Calcium 7.6 mg/dL (8.5-10.5); Carbon Dioxide 18 mmol/L (22-29); Chloride 109 mmol/L (98-107); Creatinine Clr Calc Pharmacy 29.1699; Glomerular Filtration Rate 28.3 mL/min (90-130); Glucose 77 mg/dL (65-115); Magnesium 1.5 mg/dL (1.7-2.3); Osmolality Calculated 294 mOsm/kg (285-295); Sodium 140 mmol/L (136-145)
[2025-02-22 04:57] LABS: Anion Gap 17.3 (5-19); Potassium 4.3 mmol/L (3.5-5.1)
[2025-02-22 05:06] LABS: Slide Review Slide Review Perform
[2025-02-22] MEDS: norepinephrine 4 MG/250 ML BAG 67.5 MG IV ×3 (06:02→12:21)
--- NOTE | 2025-02-22 07:34 | PC.PHAR ---
Pt unable to verify his medications. Med rec completed via pharmacy records with last fill dates and day supply added.
[2025-02-22] MEDS: acetaminophen 500 mg Tablet PO ×2 (07:59→17:10)
[2025-02-22] MEDS: vancomycin 1,250 MG/250 ML PIGGYBACK 250 MG IV (08:00)
[2025-02-22] MEDS: sodium bicarbonate 650 mg Tablet PO ×2 (08:05→14:39)
[2025-02-22] MEDS: pantoprazole 40 mg SDV IVP ×2 (08:05→17:11)
--- NOTE | 2025-02-22 08:15 | US_ITS ---
WS: [id number] ULTRASOUND RENAL TECHNIQUE: Ultrasound examination of both kidneys. CLINICAL INFORMATION: dominic COMPARISON: None. FINDINGS: RIGHT: Right kidney is normal in size and appearance. Echogenicity: Normal. Cortical thickness: 1.3 cm; Normal. Hydronephrosis: None. Perinephric fluid: None. Right kidney measures: 10.4 cm x 4.8 cm x 5.8 cm. LEFT: Left kidney is normal in size and appearance. Echogenicity: Normal. Cortical thickness: 1.3 cm; Normal. Hydronephrosis: None. Perinephric fluid: None. Left kidney measures: 11.1 cm x 5.5 cm x 6.1 cm. Normal visualized aorta. US/US renal BI* [id number] IMPRESSION: Technically difficult study due to bowel gas. 1. No hydronephrosis in either kidney. 2. Amaya catheter. 3. LEFT renal cysts.
[2025-02-22 08:37] LABS: Erythrocyte Sedimentation Rate 15 mm/hr (0-10)
--- NOTE | 2025-02-22 08:49 | CT_ITS ---
WS: [id number] NONCONTRAST CT RIGHT SHOULDER TECHNIQUE: Noncontrast CT RIGHT shoulder with coronal and sagittal reformatted images. CLINICAL INFORMATION: pain, septic shock DLP: 1591.[address] scans at [facility] use at least one of these dose optimization techniques: automated exposure control; mA and/or kV adjustment per patient size (includes targeted exams where dose is matched to clinical indication); or iterative reconstruction. FINDINGS: Anterior inferior shoulder dislocation. Bony glenoid rim fracture with small avulsed fragments along the inferior glenoid rim. Hill-Sachs deformity. Normal coracoid. Clavicle appears normal. No joint effusion. Small RIGHT pleural effusion. CT/CT shoulder RT wo con* [id number] IMPRESSION: Anterior-inferior shoulder dislocation with bony Bankart fracture along the inf erior glenoid rim. Small avulsed fragments.
--- NOTE | 2025-02-22 08:50 | CT_ITS ---
WS: [id number] CT LUMBAR SPINE TECHNIQUE: Noncontrast CT of the lumbar spine with coronal and sagittal reformatted images. CLINICAL INFORMATION: back pain COMPARISON: CT 07/16/2022 DLP: 1591.[address] scans at [facility] use at least one of these dose optimization techniques: automated exposure control; mA and/or kV adjustment per patient size (includes targeted exams where dose is matched to clinical indication); or iterative reconstruction. FINDINGS: Endplate compression fractures with endplate Schmorl's nodes involving the L1-L2 and L4 vertebral bodies. No significant retropulsion. Mild disc bulging with a small central protrusion worse at L4-5 with mild central canal stenosis and impingement of the subarticular recess. Disc bulge L5-S1 impinges the RIGHT S1 nerve root. CT/CT lumbar spine wo con* [id number] IMPRESSION: 1. Compression fractures involving the L1 L2 and L4 vertebral bodies with endp late Schmorl's nodes. These are most likely chronic and appear stable since 07/16 2. Mild central canal stenosis L4-5 due to small central protrusion.
--- NOTE | 2025-02-22 08:50 | CT_ITS ---
WS: [id number] CT CHEST TECHNIQUE: Noncontrast CT of the chest with coronal and sagittal reformatted images. CLINICAL INFORMATION: septic shock COMPARISON: None. DLP: 1591.[address] scans at [facility] use at least one of these dose optimization techniques: automated exposure control; mA and/or kV adjustment per patient size (includes targeted exams where dose is matched to clinical indication); or iterative reconstruction. FINDINGS: Trace pleural fluid. Slight RIGHT basilar compressive atelectasis. No focal pneumonia. Upper lobes are well aerated. Small esophageal hiatal hernia. Aortic calcification or coronary calcification. No mediastinal or hilar lymphadenopathy. No axillary lymphadenopathy. Adrenal glands are normal. 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 Partially visualized RIGHT shoulder dislocation CT/CT chest wo con [id number] IMPRESSION: 1. Trace pleural fluid with slight RIGHT basilar atelectasis. 2. No focal pneumonia or consolidation. 3. Small esophageal hernia. 4. Partially visualized RIGHT shoulder dislocation 5. No other acute findings.
--- NOTE | 2025-02-22 08:54 | PHA.VACGOAL ---
Vancomycin Goal - Goal Vancomycin Goal:: 15-20 mg/L Vancomycin Indication:: Other (SEPSIS) - Therapy Current therapy:: Meropenem Day of therpy:: Day 1 of [] Actual body weight (kg): 178 lb - Data Labs: WBC 8.32 10^3/uL (3.29-11.43) 02/22/25 04:26 RBC 4.35 10^6/uL (3.85-5.65) 02/22/25 04:26 Hgb 14.20 g/dL (11.27-16.99) 02/22/25 04:26 Hct 44.6 % (37-53) 02/22/25 04:26 MCV 102.5 fl (82-101) H 02/22/25 04:26 MCH 32.6 pg (27-33) 02/22/25 04:26 MCHC 31.8 g/dL (30-55) 02/22/25 04:26 RDW 16.3 % (12.1-15.1) H 02/22/25 04:26 Sodium 140 mmol/L (136-145) 02/22/25 04:26 Potassium 4.3 mmol/L (3.5-5.1) 02/22/25 04:26 Chloride 109 mmol/L (98-107) H 02/22/25 04:26 Carbon Dioxide 18 mmol/L (22-29) L 02/22/25 04:26 Anion Gap 17.3 (5-19) 02/22/25 04:26 BUN 27 mg/dL (8-23) H 02/22/25 04:26 Creatinine 2.3 mg/dL (0.7-1.2) H 02/22/25 04:26 GFR Calculation 28.3 mL/min (90-130) L 02/22/25 04:26 Last dialysis session:: N/A Treatment plan:: new consult Regimen:: TELEPHARMACY: 1250 MG LOADING DOSE WILL PULSE DOSE INTERMITTENTLY DUE TO RENAL FUNCTION. TROUGH TO BE OBTAINED 24 HOURS POST LOADING DOSE. Follow up:: TROUGH 02/23 @0700
[2025-02-22 11:45] LABS: Magnesium 1.4 mg/dL (1.7-2.3)
[2025-02-22] MEDS: meropenem 1,000 mg SDV 1000 MG IVP (12:21)
[2025-02-22] MEDS: HYDROmorphone 0.5 MG/0.5 ML INJ IVP ×2 (14:39→18:38)
[2025-02-22 15:46] LABS: Alanine Aminotransferase 18 U/L (0-41); Albumin Level 2.9 g/dL (3.5-5.2); Alkaline Phosphatase 67 U/L (40-130); Anion Gap 20.4 (5-19); Aspartate Amino Transferase 56 U/L (0-40); Blood Urea Nitrogen 25 mg/dL (8-23); Calcium 7.5 mg/dL (8.5-10.5); Carbon Dioxide 14 mmol/L (22-29); Chloride 107 mmol/L (98-107); Creatinine Clr Calc Pharmacy 38.6641; Globulin 2.7 g/dL (1.3-4.6); Glomerular Filtration Rate 37.6 mL/min (90-130); Glucose 108 mg/dL (65-115); Osmolality Calculated 289 mOsm/kg (285-295); Potassium 4.4 mmol/L (3.5-5.1); Sodium 137 mmol/L (136-145); Total Bilirubin 0.9 mg/dL (0.15-1.2); Total Protein 5.6 g/dL (6.6-8.7)
[2025-02-22] MEDS: norepinephrine 4 MG/250 ML BAG 52.5 MG IV (16:08)
--- NOTE | 2025-02-22 16:53 | P.PN_ITS ---
Subjective 2 Subjective: Patient was seen this morning, he reports right shoulder pain, limited range of motion, denies any neck pain or neck stiffness, denies any lightheadedness, no dizziness, no blurry vision, no skin rashes, there has been concern for confusion according to at bedside, reports a history of diverticulitis, tells me that it feels similar to when he had diverticulitis, he does report bloody stools, diarrhea, currently is on 20 of Levophed, Vitals/I&O/Wt Last Vital Signs Temp 100.4 F H 02/22/25 15:00 Pulse 108 H 02/22/25 15:14 Resp 33 H 02/22/25 14:45 BP 136/71 02/22/25 15:14 Pulse Ox 89 L 02/22/25 15:00 O2 Del Method Nasal Cannula 02/22/25 15:00 O2 Flow Rate 3 02/22/25 15:00 02/22/25 02/22/25 02/22/25 06:59 14:59 22:59 Intake Total 2217.125 / 3250.000 876.375 / 876.375 250 / 1126.375 Balance 2217.125 / 3250.000 876.375 / 876.375 250 / 1126.375 Weight last 48 hrs Weight 80.739 kg Weight 74.389 kg Physical Exam 2 Const: COMMON NORMALS: no acute distress ORIENTATION/CONSCIOUSNESS: Yes awake, Yes oriented to person and Yes oriented to place; not oriented to time Eye: COMMON NORMALS: Equal, round and reactive pupils present and EOMs intact bilaterally PUPIL: Yes Equal, round and reactive pupils present Neck/C-Spine: COMMON NORMALS: no JVD Lymph: LYMPHATIC: no lymphadenopathy noted Resp: COMMON NORMALS: normal respiratory effort, No retractions and No use of accessory muscles AUSCULTATION: crackles and wheezes Cardio: COMMON NORMALS: no JVD, regular rate, regular rhythm, S1 normal heart sound present and S2 normal heart sound present RATE: regular rate RHYTHM: regular rhythm HEART SOUNDS: S1 normal heart sound present and S2 normal heart sound present GI: COMMON NORMALS: Normal to inspection, nondistended, normoactive bowel sounds present and non-tender Extremity: COMMON NORMALS: no pedal edema NARRATIVE EXTREMITY EXAM: Right shoulder, radial pulse present, no evidence of vascular compromise g Neuro: SENSORIUM/ORIENTATION: Yes oriented to person, Yes oriented to place and No oriented to time Psych: COMMON NORMALS: mental status grossly normal Skin: NARRATIVE SKIN EXAM: Right shoulder, is held tightly to his side, minimal range of motion Urinary Catheter Management: Amaya: Cath Placed During This Visit: yes Reason for Continuing Indwelling Catheter: Accurate Measurement of Urinary Output in Critically Ill Patients Urinary Catheter Date of Insertion: 02/22/25 Urinary Catheter Time of Insertion: 01:05 Sepsis: Is patient septic: Yes Focused sepsis exam performed: Yes F ocused sepsis exam: DP PT pulses palpable, capillary refill, greater than 2 seconds, mottling bilateral extremity Date exam was performed: 02/22/25 Time exam was performed: 09:00 Data 02/22/25 04:26 02/22/25 15:18 Micro: Microbiology 02/22/25 09:31 Occult Blood (FIT) - Final Stool Routine Collection 02/21/25 21:32 Blood Culture - Preliminary Blood SPECIMEN COLLECTED 02/21/25 21:22 Blood Culture - Preliminary Blood SPECIMEN COLLECTED A&P Assessment and plan (1) Elevated troponin: (2) Acute kidney injury: (3) Septic shock: (4) Rheumatoid arthritis: (5) Dislocation of shoulder region: Qualifiers: Encounter type: initial encounter Laterality: right Qualified Code(s): S43.004A - Unspecified dislocation of right shoulder joint, initial encounter (6) UTI (urinary tract infection): (7) Diverticulitis: (8) Melena: Plan Septic shock -Source likely urinary tract infection, no hydronephrosis, multiple bilateral punctuate renal calculi sluggish 4 mm, no obstructive renal colliculi, renal ultrasound no obstructive uropathy -Moderate diverticulosis in the left colon without acute diverticulitis, but does complain of bloody stools, certainly diverticulitis could be playing a role we will consider repeat CT scanning patient in 2448 hrs. based on clinical progress -With immunocompromise state, on prednisone, methotrexate -CRP 201, Pro-Tato 14.7, lactic acid 3.0, creatinine 1.8 Plan -Mesenteric stranding around the terminal ileum and distal ileum, reflecting very mild enteritis/distal ileitis Currently on 20 of Levophed Blood cultures pending Urine cultures pending -Stool studies -Vancomycin -Meropenem -Bicarb drip -Albumin therapy Increased anion gap metabolic acidosis - Bicarb drip as above Acute kidney injury Related to septic shock Amaya catheter in place hold methotrexate Renal ultrasound shows no hydronephrosis Rheumatoid arthritis: Hold DMARDs COPD: CT chest Currently requiring 3 L. Sepsis induced thrombocytopenia: Monitor History of diverticulosis: Does report bloody stools, Right shoulder dislocation - CT right shoulder Full code NPO Admit to ICU for septic shock PDMP PDMP Reviewed: Not Reviewed Attestations 2 Medical Necessity Statement*: Patient requires hospitalization, inpatient, greater than 2 midnights for septic shock, source likely UTI, acute kidney injury, increased anion gap metabolic acidosis, on Levophed Coding Level of Care Code Critical Care >/= 30 minutes Critical care time (in minutes): 45 The high probability of a clinically significant, sudden or life threatening deterioration, as referenced in this documentation, required my full and direct attention, intervention and personal management. The critical care time shown is in addition to time spent performing any reported separately billable procedures and includes the following: [x] Data and vital sign review and interpretation [x ] Patient assessment, examination and intervention [x] Medication orders and management [x] Patient/Family updates as able [x] Care Coordination and Documentation. Diagnoses Elevated troponin R79.89 Acute kidney injury N17.9 Septic shock A41.9; R65.21 Rheumatoid arthritis M06.9 Dislocation of shoulder region S43.004A Encounter type: initial encounter Laterality: right UTI (urinary tract infection) N39.0 Diverticulitis K57.92 Melena K92.1
[2025-02-22] MEDS: sodium bicarbonate 50 MEQ in sodium chloride 0.45% 1,000 ML 100 MEQ IV (17:11)
[2025-02-22] MEDS: albumin 25 G/100 ML BAG 60 G IV (17:40)
[2025-02-22 17:44] LABS: Hematocrit 43.5 % (37-53); Mean Corpuscular HGB Conc 33.3 g/dL (30-55); Mean Corpuscular Hemoglobin 32.8 pg (27-33); Mean Corpuscular Volume 98.4 fl (82-101); Mean Platelet Volume 8.9 fL (7.4-10.4); Platelet Count 117 10^3/cmm (157-399); Red Blood Count 4.42 10^6/uL (3.85-5.65); Red Cell Distribution Width 16.5 % (12.1-15.1); White Blood Count 14.14 10^3/uL (3.29-11.43)
[2025-02-22 18:10] LABS: Absolute Segmented Neutrophil 3.1 10/cmm (1.6-7.1); Band Neutrophils Absolute 5.8 10^3/cmm (0.0-1.2); Basophils Absolute 0.1 10^3/cmm (0.0-0.2); Eosinophils 0 %; Lymphocytes 6 %; Segmented Neutrophils 22 %; Slide Review Slide Review Perform; Total Cells Counted 100 (0-100)
[2025-02-22 18:11] LABS: Absolute Neutrophil 8.9 10^3/cmm (1.4-6.5); Anisocytosis 1+; Giant Platelets Trace; Macrocytosis Trace; Platelet Estimate Decreased (Normal)
[2025-02-22] MEDS: norepinephrine 4 MG/250 ML BAG 22.5 MG IV (22:41)
[2025-02-22 22:46] LABS: Glucose Point of Care 102 mg/dL (70-110)
[2025-02-23] VITALS (76 sets, daily range): BP systolic 98–146; BP diastolic 63–98; PULSE 82–118; RESP 17–34; TEMP 36.5–38.4; O2SAT 88–98
[2025-02-23] MEDS: hydrocortisone 100 mg/2 mL SDV IVP (00:42)
[2025-02-23] MEDS: albumin 25 G/100 ML BAG 60 G IV ×2 (00:42→08:23)
[2025-02-23] MEDS: meropenem 1,000 mg SDV 1000 MG IVP ×2 (00:42→11:27)
[2025-02-23] MEDS: acetaminophen 500 mg Tablet PO ×2 (00:54→16:45)
[2025-02-23] MEDS: sodium bicarbonate 50 MEQ in sodium chloride 0.45% 1,000 ML 100 MEQ IV (03:51)
[2025-02-23 03:54] LABS: Basophils # 0.1 10^3/uL (0.0-0.1); Basophils % 1.2 %; Lymphocytes # 2.3 10^3/uL (0.8-4.8); Lymphocytes % 30.3 %; Mean Corpuscular Hemoglobin 32.1 pg (27-33); Mean Corpuscular Volume 97.4 fl (82-101); Mean Platelet Volume 9.3 fL (7.4-10.4); Monocytes # 0.5 10^3/uL (0.2-0.9); Neutrophils # 4.64 10^3/uL (1.8-7.7); Neutrophils % 62.2 %; Nucleated Red Blood Cells % 0 %; Platelet Count 122 10^3/cmm (157-399); Red Cell Distribution Width 16.2 % (12.1-15.1); White Blood Count 7.46 10^3/uL (3.29-11.43)
[2025-02-23 04:16] LABS: Alanine Aminotransferase 15 U/L (0-41); Albumin Level 3.5 g/dL (3.5-5.2); Alkaline Phosphatase 50 U/L (40-130); Anion Gap 14.4 (5-19); Aspartate Amino Transferase 45 U/L (0-40); Blood Urea Nitrogen 27 mg/dL (8-23); Calcium 7.8 mg/dL (8.5-10.5); Carbon Dioxide 21 mmol/L (22-29); Chloride 105 mmol/L (98-107); Creatinine Clr Calc Pharmacy 63.2685; Globulin 1.8 g/dL (1.3-4.6); Glomerular Filtration Rate 66.4 mL/min (90-130); Glucose 89 mg/dL (65-115); Magnesium 1.8 mg/dL (1.7-2.3); Osmolality Calculated 289 mOsm/kg (285-295); Phosphorus 2.7 mg/dL (2.5-4.5); Potassium 3.4 mmol/L (3.5-5.1); Sodium 137 mmol/L (136-145); Total Bilirubin 0.8 mg/dL (0.15-1.2); Total Protein 5.3 g/dL (6.6-8.7)
[2025-02-23 04:17] LABS: NT Pro B Type Natriuretic Pept 2053 pg/mL (0-125); Procalcitonin 20.91 ng/mL (0-0.5)
[2025-02-23 04:19] LABS: Lactate (Lactic Acid level) 1.2 mmol/L (0.5-2.2)
[2025-02-23 04:39] LABS: Creatine Phosphokinase 589 U/L (39-308)
[2025-02-23 04:40] LABS: Slide Review Slide Review Perform
[2025-02-23 07:30] LABS: Vancomycin Trough 4.6 ug/mL (10-15)
--- NOTE | 2025-02-23 08:00 | PC.NURSE ---
Agree with assessment performed and documented per Dahlia Law student nurse.
[2025-02-23] MEDS: pantoprazole 40 mg SDV IVP ×2 (08:23→17:16)
[2025-02-23] MEDS: VANCOMYCIN ADD-Vantage 1,000 MG in 0.9% NaCl ADD-Vantage 250 ML 250 MG IV ×2 (09:50→20:11)
[2025-02-23 10:42] LABS: C.Diff PCR (Lab) NEGATIVE (Negative)
[2025-02-23] MEDS: trazodone 50 mg Tablet PO (11:01)
[2025-02-23] MEDS: metoclopramide 5 mg/mL SDV 2 mL IVP (11:02)
--- NOTE | 2025-02-23 11:03 | PC.SOCIAL ---
IMM Update pg 2 of IMM Updated and reviewed w/ patient. Copy provided and copy dated, initialed and placed in chart.
[2025-02-23] MEDS: diphenhydrAMINE 50 mg/mL SDV 1mL 25 MG IVP (11:05)
[2025-02-23] MEDS: ketorolac 30 mg/mL INJ 15 MG IVP (11:06)
--- NOTE | 2025-02-23 12:37 | P.PN_ITS ---
Subjective 2 Subjective: Patient was seen this morning, he is alert oriented x 3, following all commands, he tells me he feels hungry, he is having a migraine, denies any lightheadedness, no dizziness, he is currently off Levophed, on 1 to 2 L, Vitals/I&O/Wt Last Vital Signs Temp 97.7 F 02/23/25 06:15 Pulse 104 H 02/23/25 12:30 Resp 21 H 02/23/25 12:30 BP 118/73 02/23/25 12:30 Pulse Ox 94 02/23/25 12:30 O2 Del Method Room Air 02/23/25 11:45 O2 Flow Rate 3 02/23/25 08:35 02/22/25 02/23/25 02/23/25 22:59 06:59 14:59 Intake Total 600.00 / 5705.930 8132.00 / 2696.375 350 / 350 Output Total 1200 / 1200 1150 / 2350 Balance -600.00 / 276.375 70.00 / 346.375 350 / 350 Weight last 48 hrs Weight 77.61 kg Weight 80.739 kg Weight 74.389 kg Physical Exam 2 Const: COMMON NORMALS: no acute distress and patient oriented x3 Resp: COMMON NORMALS: normal respiratory effort, No retractions, No use of accessory muscles and clear to auscultation bilaterally AUSCULTATION: clear to auscultation bilaterally Cardio: COMMON NORMALS: regular rate, regular rhythm, S1 normal heart sound present and S2 normal heart sound present RATE: regular rate RHYTHM: r egular rhythm HEART SOUNDS: S1 normal heart sound present and S2 normal heart sound present GI: COMMON NORMALS: Normal to inspection, nondistended, normoactive bowel sounds present and non-tender Extremity: COMMON NORMALS: no pedal edema Neuro: COMMON NORMALS: patient oriented x3 Psych: COMMON NORMALS: mental status grossly normal Urinary Catheter Management: Amaya: Cath Placed During This Visit: yes Reason for Continuing Indwelling Catheter: Accurate Measurement of Urinary Output in Critically Ill Patients Urinary Catheter Date of Insertion: 02/22/25 Urinary Catheter Time of Insertion: 01:05 Sepsis: Is patient septic: No Focused sepsis exam performed: Yes Focused sepsis exam: DP PT pulses palpable, cap refill less than 2 seconds, no mottling Date exam was performed: 02/23/25 Time exam was performed: 09:00 Data 02/23/25 03:08 02/23/25 03:08 Micro: Microbiology 02/21/25 21:26 Urine Culture - Final Urine,Clean Catch 02/23/25 09:35 Stool Lactoferrin - Final Stool Occult Blood (FIT) - Final 02/21/25 21:32 Blood Culture - Preliminary Blood NEGATIVE TO DATE 02/21/25 21:22 Blood Culture - Preliminary Blood NEGATIVE TO DATE 02/22/25 09:31 Occult Blood (FIT) - Final Stool Routine Collection A&P Assessment and plan (1) Elevated troponin: (2) Acute kidney injury: (3) Septic shock: (4) Rheumatoid arthritis: (5) Dislocation of shoulder region: Qualifiers: Encounter type: initial encounter Laterality: right Qualified Code(s): S43.004A - Unspecified dislocation of right shoulder joint, initial encounter (6) UTI (urinary tract infection): (7) Diverticulitis: (8) Melena: Plan Septic shock -Source likely urinary tract infection, no hydronephrosis, multiple bilateral punctuate renal calculi 4 mm, no obstructive renal colliculi, renal ultrasound no obstructive uropathy -Moderate diverticulosis in the left colon without acute diverticulitis, but does complain of bloody stools, certainly diverticulitis could be playing a role we will consider repeat CT scanning patient in 24-48 hrs. based on clinical progress -With immunocompromise state, on prednisone, methotrexate -CRP 201, Pro-Tato 14.7, lactic acid 3.0, creatinine 1.8 -Mesenteric stranding around the terminal ileum and distal ileum, reflecting very mild enteritis/distal ileitis Plan Currently off Levophed Will wean off albumin Wean off sodium bicarb drip Blood cultures pending Urine cultures pending -Stool studies -Vancomycin -Meropenem Concerns for diverticulitis, advance diet to clear liquids, serial abdominal exams Increased anion gap metabolic acidosis - Bicarb drip as above Acute kidney injury Related to septic shock Amaya catheter in place hold methotrexate Renal ultrasound shows no hydronephrosis Rheumatoid arthritis: Hold DMARDs COPD: CT chest Currently requiring 3 L. Sepsis induced thrombocytopenia: Monitor History of diverticulosis: Does report bloody stools, Right shoulder dislocation - CT right shoulder CT/CT shoulder RT wo con* [id number] IMPRESSION: Anterior-inferior shoulder dislocation with bony Bankart fracture along the inferior glenoid rim. Small avulsed fragments - No vascular compromise -Does have complaints of paresthesias which have been ongoing for the last few weeks, not suddenly worse -Spoke to orthopedic service, recommend evaluation by tertiary level center for surgical intervention -Plan to keep in shoulder immobilizer, nonweightbearing - Once patient's septic shock resolves, clinical status improves, will need orthopedic evaluation in person versus outpatient Full code NPO Admit to ICU for septic shock PDMP PDMP Reviewed: Not Reviewed Attestations 2 Medical Necessity Statement*: Patient requires hospitalization for sepsis, secondary to UTI, concern for diverticulitis, metabolic acidosis Diagnoses Elevated troponin R79.89 Acute kidney injury N17.9 Septic shock A41.9; R65.21 Rheumatoid arthritis M06.9 Dislocation of shoulder region S43.004A Encounter type: initial encounter Laterality: right UTI (urinary tract infection) N39.0 Diverticulitis K57.92 Melena K92.1
[2025-02-23] MEDS: gabapentin 300 mg Capsule PO ×2 (14:32→20:10)
[2025-02-23] MEDS: sodium bicarbonate 50 MEQ in sodium chloride 0.45% 1,000 ML IV (16:16)
[2025-02-23] MEDS: predniSONE 5 mg Tablet 10 MG PO (17:30)
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
[2025-02-24] VITALS (26 sets, daily range): BP systolic 117–143; BP diastolic 75–88; PULSE 84–102; RESP 16–29; TEMP 36.6–37.4; O2SAT 91–97
[2025-02-24] MEDS: meropenem 1,000 mg SDV 1000 MG IVP ×2 (00:13→12:38)
[2025-02-24 04:49] LABS: Basophils # 0.1 10^3/uL (0.0-0.1); Basophils % 0.6 %; Hematocrit 35.5 % (37-53); Lymphocytes # 5.4 10^3/uL (0.8-4.8); Lymphocytes % 50.6 %; Mean Corpuscular HGB Conc 33.2 g/dL (30-55); Mean Corpuscular Hemoglobin 32.4 pg (27-33); Mean Corpuscular Volume 97.5 fl (82-101); Mean Platelet Volume 9.2 fL (7.4-10.4); Monocytes # 0.5 10^3/uL (0.2-0.9); Monocytes % 4.9 %; Neutrophils # 4.68 10^3/uL (1.8-7.7); Neutrophils % 43.5 %; Nucleated Red Blood Cells % 0 %; Platelet Count 82 10^3/cmm (157-399); Red Blood Count 3.64 10^6/uL (3.85-5.65); Red Cell Distribution Width 16.2 % (12.1-15.1); White Blood Count 10.74 10^3/uL (3.29-11.43)
[2025-02-24 04:52] LABS: Slide Review Slide Review Perform
[2025-02-24 05:10] LABS: Alanine Aminotransferase 13 U/L (0-41); Albumin Level 3.3 g/dL (3.5-5.2); Alkaline Phosphatase 44 U/L (40-130); Anion Gap 12.1 (5-19); Aspartate Amino Transferase 34 U/L (0-40); Blood Urea Nitrogen 25 mg/dL (8-23); C Reactive Protein 169.7 mg/L (0.0-4.9); Calcium 8.2 mg/dL (8.5-10.5); Carbon Dioxide 26 mmol/L (22-29); Chloride 107 mmol/L (98-107); Creatinine Clr Calc Pharmacy 85.4515; Globulin 2.5 g/dL (1.3-4.6); Glomerular Filtration Rate 111.8 mL/min (90-130); Glucose 91 mg/dL (65-115); Magnesium 2.1 mg/dL (1.7-2.3); Osmolality Calculated 298 mOsm/kg (285-295); Phosphorus 1.8 mg/dL (2.5-4.5); Potassium 3.1 mmol/L (3.5-5.1); Sodium 142 mmol/L (136-145); Total Bilirubin 0.7 mg/dL (0.15-1.2); Total Protein 5.8 g/dL (6.6-8.7)
[2025-02-24 05:13] LABS: Lactate (Lactic Acid level) 0.8 mmol/L (0.5-2.2)
[2025-02-24 05:23] LABS: NT Pro B Type Natriuretic Pept 2118 pg/mL (0-125); Procalcitonin 11.07 ng/mL (0-0.5)
[2025-02-24 05:34] LABS: Creatine Phosphokinase 178 U/L (39-308)
[2025-02-24] MEDS: citalopram 20 mg Tablet 40 MG PO (08:29)
[2025-02-24] MEDS: pantoprazole 40 mg SDV IVP (08:29)
--- NOTE | 2025-02-24 08:29 | CTR_ITS ---
PROCEDURE INFORMATION: Exam: CT Abdomen And Pelvis With Contrast Exam date and time: 02/24/2025 9:17 AM Age: 69 years old Clinical indication: Other: Prostatitis? Prostatic abscess? Septic shock TECHNIQUE: Imaging protocol: Computed tomography of the abdomen and pelvis with contrast. Radiation optimization: All CT scans at this facility use at least one of these dose optimization techniques: automated exposure control; mA and/or kV adjustment per patient size (includes targeted exams where dose is matched to clinical indication); or iterative reconstruction. Contrast material: OMNI 350; Contrast volume: 100 ml; Contrast route: INTRAVENOUS (IV); COMPARISON: CT abdomen pelvis wo con [id number] 02/22/2025 12:25 AM RADIATION DOSE METRICS: Total DLP (mGy-cm): 742.95 FINDINGS: Tubes, catheters and devices: Amaya catheter present. Lungs: Trace bibasilar pleural fluid. Liver: The liver is unremarkable. Gallbladder and biliary ducts: The gallbladder is unremarkable. No biliary ductal dilatation. Pancreas: Mild atrophy of the pancreas. No pancreatic ductal dilation. Spleen: The spleen is unremarkable. Adrenal glands: The adrenal glands are unremarkable. Kidneys and ureters: Multiple bilateral renal cysts measuring up to 3.3 cm. No hydronephrosis or hydroureter. Multiple small nonobstructing renal calculi measuring up to 0.4 cm. These may be vascular in nature. Stomach and bowel: Moderate colonic diverticulosis. The presence of trace fluid in the bilateral paracolic gutters could easily obscure mild acute diverticulitis of the ascending, descending, or sigmoid colons. Mild/questionable bowel wall thickening involving the ascending colon and multiple loops of small bowel. Mild bowel wall thickening of the rectum. No evidence of bowel obstruction. Appendix: The appendix is normal. Intraperitoneal space: No extraluminal free air. Trace fluid along the bilateral paracolic gutters. No focal drainable fluid collection. Vasculature: Mild scattered calcific atheromatous disease of the abdominal aorta and its major branches. No abdominal aortic aneurysm. Lymph nodes: No distinct pathologically enlarged lymphadenopathy. Urinary bladder: Urinary bladder demonstrates a mildly thickened bladder wall. Small amount of anti dependent air in the urinary bladder is presumed secondary to catheterization. Reproductive: Visualized reproductive structures are within normal limits. Bones/joints: Stable appearance compression deformities and Schmorl's nodes involving L1, L2, and L4. Discogenic degenerative changes at L4-L5. Soft tissues: Small fat containing left inguinal hernia. CT/CT abdomen pelvis w con* [id number] IMPRESSION: 1. Mild/questionable bowel wall thickening involving the ascending colon and multiple loops of small bowel. This may be incidental, may represent ascending colonic diverticulitis, or may represent other nonspecific enterocolitis. 2. Moderate colonic diverticulosis. The presence of trace fluid in the bilateral paracolic gutters could easily obscure mild acute diverticulitis of the ascending, descending, or sigmoid colons. 3. Mild bowel wall thickening of the rectum. This can be seen with proctitis. No evidence of drainable fluid collection. 4. Normal radiographic appearance of the prostate. 5. Urinary bladder demonstrates a mildly thickened bladder wall. This is likely incidental secondary to nondistention. Mild cystitis could have a similar appearance. 6. Multiple small nonobstructing renal calculi measuring up to 0.4 cm. These may be vascular in nature. No hydronephrosis or hydroureter. COMMENTS: Consistent with the [place]'s Incidental Findings Committee white paper (J Am Gill Radiol 2018): Any incidental renal lesion less than 1 cm or classified as too small to characterize, or any incidental cystic renal lesion characterized as simple-appearing, is likely benign. No follow-up imaging is recommended for these lesions per consensus recommendations based on imaging criteria.
[2025-02-24] MEDS: folic acid 1 mg Tablet PO (08:30)
[2025-02-24] MEDS: predniSONE 5 mg Tablet 10 MG PO ×2 (08:30→17:05)
[2025-02-24] MEDS: gabapentin 300 mg Capsule PO ×3 (08:30→21:16)
[2025-02-24] MEDS: TRAMadol 50 mg Tablet PO (08:30)
[2025-02-24] MEDS: trazodone 50 mg Tablet PO (08:30)
[2025-02-24] MEDS: VANCOMYCIN ADD-Vantage 1,000 MG in 0.9% NaCl ADD-Vantage 250 ML 250 MG IV ×2 (08:31→21:15)
[2025-02-24] MEDS: potassium chloride ER 20 mEq Tablet 40 MEQ PO (08:47)
[2025-02-24] MEDS: sodium chloride 0.9% 1,000 ML 50 ML IV (08:48)
[2025-02-24] MEDS: iohexol 350 mg/mL 500 mL Btl (per mL) IV (09:20)
--- NOTE | 2025-02-24 10:41 | P.PN_ITS ---
Subjective 2 Subjective: - Patient was seen this morning, he is a lert oriented x 3, following all commands - Does report lower abdominal pain, does report diarrhea - No bloody or black stools reported - Right shoulder pain is improving - Discussed repeating CT scan abdomen pe lvis IV contrast, will continue IV fluids - Discussed PT OT, up out of bed into a chair - Plans on moving to the medical floors today - Will monitor closely today Vitals/I&O/Wt Last Vital Signs Temp 98.9 F 02/24/25 09:00 Pulse 96 02/24/25 10:00 Resp 26 H 02/24/25 10:00 BP 136/80 02/24/25 10:00 Pulse Ox 96 02/24/25 09:00 O2 Del Method Room Air 02/24/25 08:30 O2 Flow Rate 2 02/24/25 04:30 02/23/25 02/24/25 02/24/25 22:59 06:59 14:59 Intake Total 515 / 2300 600 / 600 Output Total 200 / 800 625 / 1425 Balance 315 / 1500 -625 / 875 600 / 600 Weight last 48 hrs Weight 74.661 kg Weight 77.61 kg Physical Exam 2 Const: COMMON NORMALS: no acute distress and patient oriented x3 Resp: COMMON NORMALS: normal respiratory effort, No retractions, No use of accessory muscles and clear to auscultation bilaterally AUSCULTATION: clear to auscultation bilaterally Cardio: COMMON NORMALS: regular rate, regular rhythm, S1 normal heart sound present and S2 normal heart sound present RATE: regular rate RHYTHM: r egular rhythm HEART SOUNDS: S1 normal heart sound present and S2 normal heart sound present GI: COMMON NORMALS: Normal to inspection, nondistended, normoactive bowel sounds present and non-tender Extremity: COMMON NORMALS: no pedal edema NARRATIVE EXTREMITY EXAM: Right shoulder immobilizer, good radial pulses, Neuro: COMMON NORMALS: patient oriented x3 Psych: COMMON NORMALS: mental status grossly normal Urinary Catheter Management: Amaya: Cath Placed During This Visit: yes Reason for Continuing Indwelling Catheter: Accurate Measurement of Urinary Output in Critically Ill Patients Urinary Catheter Date of Insertion: 02/22/25 Urinary Catheter Time of Insertion: 01:05 Data 02/24/25 04:34 02/24/25 04:34 Micro: Microbiology 02/21/25 21:26 Urine Culture - Final Urine,Clean Catch 02/23/25 09:35 Stool Lactoferrin - Final Stool Occult Blood (FIT) - Final A&P Assessment and plan (1) Elevated troponin: (2) Acute kidney injury: (3) Septic shock: (4) Rheumatoid arthritis: (5) Dislocation of shoulder region: Qualifiers: Encounter type: initial encounter Laterality: right Qualified Code(s): S43.004A - Unspecified dislocation of right shoulder joint, initial encounter (6) UTI (urinary tract infection): (7) Diverticulitis: (8) Melena: (9) Acute bacterial prostatitis: Plan Septic shock etiology acute bacterial prostatitis and/or UTI and/or diverticulitis -Source likely urinary tract infection, no hydronephrosis, multiple bilateral punctuate renal calculi 4 mm, no obstructive renal colliculi, renal ultrasound no obstructive uropathy -However given that patient's UA/cultures have been relatively lackluster, the degree of septic shock, I am highly suspicious that he had acute bacterial prostatitis -Moderate diverticulosis in the left colon without acute diverticulitis, but does complain of bloody stools, certainly diverticulitis could be playing a role we will consider repeat CT scanning patient in 24-48 hrs. based on clinical progress -With immunocompromise state, on prednisone, methotrexate -CRP 201, Pro-Tato 14.7, lactic acid 3.0, creatinine 1.8 -Mesenteric stranding around the terminal ileum and distal ileum, reflecting very mild enteritis/distal ileitis Plan Currently off Levophed IV fluids Blood cultures so far no growth Urine cultures so far no growth -Stool studies -Vancomycin -Meropenem - Will repeat CT scan abdomen pelvis with IV contrast Concerns for diverticulitis, advance diet to clear liquids, serial abdominal exams Increased anion gap metabolic acidosis - Resolved, IV fluids Acute kidney injury Related to septic shock Amaya catheter in place hold methotrexate Renal ultrasound shows no hydronephrosis Rheumatoid arthritis: Hold DMARDs COPD: CT chest Currently requiring 3 L. Sepsis induced thrombocytopenia: Monitor History of diverticulosis: Does report bloody stools, Right shoulder dislocation - CT right shoulder CT/CT shoulder RT wo con* [id number] IMPRESSION: Anterior-inferior shoulder dislocation with bony Bankart fracture along the inferior glenoid rim. Small avulsed fragments - No vascular compromise -Does have complaints of paresthesias which have been ongoing for the last few weeks, not suddenly worse -Spoke to orthopedic service, recommended that reducing it would likely result in recurrent dislocation, recommended to keep in an immobilizer, recommend evaluation by tertiary level center for surgical intervention -Spoke to orthopedic service at [facility], they recommended outpatient follow-up for surgical intervention, -Plan to keep in shoulder immobilizer, nonweightbearing - Once patient's septic shock resolves, clinical status improves, we will likely have her follow-up as outpatient Full code GI soft diet Will moved to medical floors PDMP PDMP Reviewed: Not Reviewed Attestations 2 Medical Necessity Statement*: Plan for today, moved patient to medical floors, for septic shock, concern for acute bacterial prostatitis, diverticulitis, right shoulder dislocation Diagnoses Elevated troponin R79.89 Acute kidney injury N17.9 Septic shock A41.9; R65.21 Rheumatoid arthritis M06.9 Dislocation of shoulder region S43.004A Encounter type: initial encounter Laterality: right UTI (urinary tract infection) N39.0 Diverticulitis K57.92 Melena K92.1 Acute bacterial prostatitis N41.0
[2025-02-24] MEDS: water for injection-sterile 10 ML 10000 ML (12:45)
--- NOTE | 2025-02-24 14:17 | PC.NURSE ---
transfer to room 271 at this time per wheel chair
[2025-02-24] MEDS: pantoprazole DR 40 mg Tablet PO (17:05)
[2025-02-24 20:18] LABS: Vancomycin Trough 11.4 ug/mL (10-15)
[2025-02-25] VITALS (10 sets, daily range): BP systolic 129–142; BP diastolic 73–85; PULSE 70–92; RESP 15–19; TEMP 36.7–37.2; O2SAT 92–96
[2025-02-25] MEDS: meropenem 1,000 mg SDV 1000 MG IVP ×2 (00:14→12:30)
[2025-02-25 05:19] LABS: Basophils % 0.4 %; Eosinophils % 0.1 %; Hematocrit 36.5 % (37-53); Lymphocytes # 6.6 10^3/uL (0.8-4.8); Lymphocytes % 59.8 %; Mean Corpuscular HGB Conc 32.6 g/dL (30-55); Mean Corpuscular Hemoglobin 31.9 pg (27-33); Mean Corpuscular Volume 97.9 fl (82-101); Mean Platelet Volume 9.8 fL (7.4-10.4); Monocytes # 0.6 10^3/uL (0.2-0.9); Monocytes % 5.8 %; Neutrophils # 3.67 10^3/uL (1.8-7.7); Neutrophils % 33.4 %; Nucleated Red Blood Cells % 0 %; Platelet Count 94 10^3/cmm (157-399); Red Blood Count 3.73 10^6/uL (3.85-5.65); White Blood Count 10.97 10^3/uL (3.29-11.43)
[2025-02-25 05:23] LABS: Alanine Aminotransferase 12 U/L (0-41); Albumin Level 3.3 g/dL (3.5-5.2); Alkaline Phosphatase 52 U/L (40-130); Anion Gap 13.5 (5-19); Aspartate Amino Transferase 25 U/L (0-40); Blood Urea Nitrogen 22 mg/dL (8-23); C Reactive Protein 83.9 mg/L (0.0-4.9); Calcium 8.3 mg/dL (8.5-10.5); Carbon Dioxide 24 mmol/L (22-29); Chloride 107 mmol/L (98-107); Creatinine Clr Calc Pharmacy 84.8923; Globulin 2.4 g/dL (1.3-4.6); Glomerular Filtration Rate 133.6 mL/min (90-130); Glucose 88 mg/dL (65-115); Magnesium 1.8 mg/dL (1.7-2.3); Osmolality Calculated 295 mOsm/kg (285-295); Potassium 3.5 mmol/L (3.5-5.1); Sodium 141 mmol/L (136-145); Total Bilirubin 0.8 mg/dL (0.15-1.2); Total Protein 5.7 g/dL (6.6-8.7)
[2025-02-25 05:31] LABS: Slide Review Slide Review Perform
[2025-02-25 05:37] LABS: NT Pro B Type Natriuretic Pept 2361 pg/mL (0-125); Procalcitonin 5.79 ng/mL (0-0.5)
[2025-02-25 05:43] LABS: Lactate (Lactic Acid level) 0.8 mmol/L (0.5-2.2)
[2025-02-25 05:47] LABS: Creatine Phosphokinase 70 U/L (39-308)
[2025-02-25] MEDS: sodium chloride 0.9% 1,000 ML 50 ML IV (06:37)
[2025-02-25] MEDS: predniSONE 5 mg Tablet 10 MG PO ×2 (07:55→17:58)
[2025-02-25] MEDS: folic acid 1 mg Tablet PO (08:02)
[2025-02-25] MEDS: citalopram 20 mg Tablet 40 MG PO (08:02)
[2025-02-25] MEDS: vancomycin 1,250 MG/250 ML PIGGYBACK 166.67 MG IV (08:03)
[2025-02-25] MEDS: pantoprazole DR 40 mg Tablet PO ×2 (08:03→17:58)
[2025-02-25] MEDS: gabapentin 300 mg Capsule PO ×3 (08:03→20:41)
--- NOTE | 2025-02-25 14:22 | PM.PN ---
Subjective Subjective: Patient was seen this morning, he is alert oriented x 3, following all commands, denies any fevers, chills, no cough, lightheaded, dizziness Vitals/I&O/Wt Last Vital Signs Temp 98.8 F 02/25/25 11:30 Pulse 88 02/25/25 11:30 Resp 15 02/25/25 11:30 BP 132/85 02/25/25 11:30 Pulse Ox 92 02/25/25 11:30 O2 Del Method Room Air 02/25/25 11:30 O2 Flow Rate 2 02/24/25 04:30 02/24/25 02/25/25 02/25/25 22:59 06:59 14:59 Intake Total 730 / 2690 1300 / 3990 730 / 730 Output Total 1000 / 1000 1050 / 2050 650 / 650 Balance -270 / 1690 250 / 1940 80 / 80 Weight last 48 hrs Weight 76.476 kg Weight 74.661 kg Physical Exam Const: COMMON NORMALS: no acute distress and patient oriented x3 Resp: COMMON NORMALS: normal respiratory effort, No retractions, No use of accessory muscles and clear to auscultation bilaterally AUSCULTATION: clear to auscultation bilaterally Cardio: COMMON NORMALS: regular rate, regular rhythm, S1 normal heart sound present and S2 normal heart sound present RATE: regular rate RHYTHM: regular rhythm HEART SOUNDS: S1 normal heart sound present and S2 normal heart sound present GI: COMMON NORMALS: Normal to inspection, nondistended, normoactive bowel sounds present Extremity: COMMON NORMALS: no pedal edema Neuro: COMMON NORMALS: patient oriented x3 Psych: COMMON NORMALS: mental status grossly normal Urinary Catheter Management: Amaya: Cath Placed During This Visit: yes, but has since been removed by the nurse Reason for Continuing Indwelling Catheter: Decision to DC Catheter Urinary Catheter Date of Insertion: 02/22/25 Urinary Catheter Time of Insertion: 01:05 Date Urinary Catheter Removed: 02/25/25 Time Urinary Catheter Discontinued: 12:35 Data 02/25/25 04:48 02/25/25 04:48 A&P Assessment and plan (1) Elevated troponin: (2) Acute kidney injury: (3) Septic shock: (4) Rheumatoid arthritis: (5) Dislocation of shoulder region: Qualifiers: Encounter type: initial encounter Laterality: right Qualified Code(s): S43.004A - Unspecified dislocation of right shoulder joint, initial encounter (6) UTI (urinary tract infection): (7) Diverticulitis: (8) Melena: (9) Acute bacterial prostatitis: Plan Septic shock etiology acute bacterial prostatitis and/or UTI and/or diverticulitis -Source likely urinary tract infection, no hydronephrosis, multiple bilateral punctuate renal calculi 4 mm, no obstructive renal colliculi, renal ultrasound no obstructive uropathy -However given that patient's UA/cultures have been relatively lackluster, the degree of septic shock, I am highly suspicious that he had acute bacterial prostatitis -Moderate diverticulosis in the left colon without acute diverticulitis, but does complain of bloody stools, certainly diverticulitis could be playing a role we will consider repeat CT scanning patient in 24-48 hrs. based on clinical progress -With immunocompromise state, on prednisone, methotrexate -CRP 201, Pro-Tato 14.7, lactic acid 3.0, creatinine 1.8 -Mesenteric stranding around the terminal ileum and distal ileum, reflecting very mild enteritis/distal ileitis - Repeat CT scan with IV contrast CT/CT abdomen pelvis w con* [id number] IMPRESSION: 1. Mild/questionable bowel wall thickening involving the ascending colon and multiple loops of small bowel. This may be incidental, may represent ascending colonic diverticulitis, or may represent other nonspecific enterocolitis. 2. Moderate colonic diverticulosis. The presence of trace fluid in the bilateral paracolic gutters could easily obscure mild acute diverticulitis of the ascending, descending, or sigmoid colons. 3. Mild bowel wall thickening of the rectum. This can be seen with proctitis. No evidence of drainable fluid collection. 4. Normal radiographic appearance of the prostate. 5. Urinary bladder demonstrates a mildly thickened bladder wall. This is likely incidental secondary to nondistention. Mild cystitis could have a similar appearance. 6. Multiple small nonobstructing renal calculi measuring up to 0.4 cm. These may be vascular in nature. No hydronephrosis or hydroureter. - Based upon patient's severity of septic shock, illness, elevated laboratory markers, highly suspicious that he had acute bacterial prostatitis -Certainly acute diverticulitis could have been playing a role -Nonetheless we will recommend total of 6 weeks of antibiotics for acute bacterial prostatitis -So far urine cultures no growth -So far blood cultures no growth Plan Currently off Levophed IV fluids Blood cultures so far no growth Urine cultures so far no growth -Stool studies -Vancomycin -Meropenem - Switch to p.o. antibiotics possibly tomorrow based on clinical progress Concerns for diverticulitis, advance to GI soft diet, serial abdominal exams Increased anion gap metabolic acidosis - Resolved, IV fluids Acute kidney injury, resolved Related to septic shock Amaya catheter in place hold methotrexate Renal ultrasound shows no hydronephrosis Rheumatoid arthritis: Hold DMARDs, hold for at least 6 weeks COPD: CT chest Currently requiring 3 L. Sepsis induced thrombocytopenia: Monitor History of diverticulosis: Does report bloody stools, Right shoulder dislocation - CT right shoulder CT/CT shoulder RT wo con* [id number] IMPRESSION: Anterior-inferior shoulder dislocation with bony Bankart fracture along the inferior glenoid rim. Small avulsed fragments - No vascular compromise -Does have complaints of paresthesias which have been ongoing for the last few weeks, not suddenly worse -Spoke to orthopedic service, recommended that reducing it would likely result in recurrent dislocation, recommended to keep in an immobilizer, recommend evaluation by tertiary level center for surgical intervention -Spoke to orthopedic service at [facility], they recommended outpatient follow-up for surgical intervention, -Plan to keep in shoulder immobilizer, nonweightbearing - Once patient's septic shock resolves, clinical status improves, we will likely have her follow-up as outpatient -Patient would prefer [facility] Full code GI soft diet Will moved to medical floors PDMP PDMP Reviewed: Not Reviewed Attestations Medical Necessity Statement*: Patient requires hospitalization for septic shock, acute bacterial prostatitis Diagnoses Elevated troponin R79.89 Acute kidney injury N17.9 Septic shock A41.9; R65.21 Rheumatoid arthritis M06.9 Dislocation of shoulder region S43.004A Encounter type: initial encounter Laterality: right UTI (urinary tract infection) N39.0 Diverticulitis K57.92 Melena K92.1 Acute bacterial prostatitis N41.0
[2025-02-25] MEDS: metroNIDAZOLE 500 MG Tablet PO (20:41)
[2025-02-25] MEDS: trazodone 50 mg Tablet PO (20:41)
[2025-02-25] MEDS: ciprofloxacin 500 mg Tablet PO (20:41)
[2025-02-26 04:00] VITALS: BP 120/78; PULSE 79; RESP 19; TEMP 36.8; O2SAT 94
[2025-02-26 04:42] LABS: Basophils % 0.2 %; Eosinophils % 0.1 %; Hematocrit 37.9 % (37-53); Lymphocytes # 6.7 10^3/uL (0.8-4.8); Lymphocytes % 69.1 %; Mean Corpuscular HGB Conc 32.7 g/dL (30-55); Mean Corpuscular Hemoglobin 32.4 pg (27-33); Mean Platelet Volume 9.6 fL (7.4-10.4); Monocytes # 0.8 10^3/uL (0.2-0.9); Monocytes % 8.6 %; Neutrophils % 21.7 %; Nucleated Red Blood Cells % 0 %; Platelet Count 159 10^3/cmm (157-399); Red Blood Count 3.83 10^6/uL (3.85-5.65); Red Cell Distribution Width 15.9 % (12.1-15.1); White Blood Count 9.69 10^3/uL (3.29-11.43)
[2025-02-26 05:07] LABS: Anion Gap 11.6 (5-19); Blood Urea Nitrogen 19 mg/dL (8-23); Calcium 8.4 mg/dL (8.5-10.5); Carbon Dioxide 26 mmol/L (22-29); Chloride 109 mmol/L (98-107); Creatinine Clr Calc Pharmacy 84.3332; Glomerular Filtration Rate 133.6 mL/min (90-130); Glucose 98 mg/dL (65-115); Osmolality Calculated 298 mOsm/kg (285-295); Potassium 3.6 mmol/L (3.5-5.1); Sodium 143 mmol/L (136-145)
[2025-02-26 05:25] LABS: Slide Review Slide Review Perform
[2025-02-26 07:54] VITALS: BP 145/85; PULSE 84; RESP 18; TEMP 36.7; O2SAT 93
[2025-02-26] MEDS: predniSONE 5 mg Tablet 10 MG PO (08:16)
[2025-02-26] MEDS: gabapentin 300 mg Capsule PO (08:16)
[2025-02-26] MEDS: metroNIDAZOLE 500 MG Tablet PO (08:16)
[2025-02-26] MEDS: citalopram 20 mg Tablet 40 MG PO (08:16)
[2025-02-26] MEDS: pantoprazole DR 40 mg Tablet PO (08:16)
[2025-02-26] MEDS: folic acid 1 mg Tablet PO (08:16)
[2025-02-26] MEDS: ciprofloxacin 500 mg Tablet PO (08:16)
[2025-02-26 09:24] VITALS: PULSE 84; RESP 18; O2SAT 94
[2025-02-26 11:10] VITALS: BP 145/87; PULSE 80; RESP 16; TEMP 36.7; O2SAT 92
--- NOTE | 2025-02-26 12:06 | PC.SOCIAL ---
IMM Updated Updated pt on IMM. No questions voiced. Provided pt a copy. Initialed, dated, & timed copy in chart.
--- NOTE | 2025-02-26 12:22 | P.DS_ITS ---
Discharge Providers Date of Admission: 02/21/25 23:11 Date of Discharge: February 26, 2025 Attending Provider at Admission: Afia Vasquez MD Attending Provider at Discharge: Mark Salomon MD Primary Care Provider: Abel Moser MD Diagnoses at Discharge Discharge Diagnosis (1) Elevated troponin: Status: Acute (2) Acute kidney injury: Status: Acute (3) Septic shock: Status: Acute (4) Rheumatoid arthritis: Status: Acute (5) Dislocation of shoulder region: Status: Acute Qualifiers: Encounter type: initial encounter Laterality: right Qualified Code(s): S43.004A - Unspecified dislocation of right shoulder joint, initial encounter (6) UTI (urinary tract infection): Status: Acute (7) Diverticulitis: Status: Acute (8) Melena: Status: Acute (9) Acute bacterial prostatitis: Status: Acute Reason for Visit Reason for Visit: unresponsive Brief History: History as per HPI: Jc Roberson is a 69 year old male with history of rheumatoid arthritis, anemia, diverticulitis, presented to the hospital with chief complaint of generalized weakness, fatigue, confusion. Patient was seen in the ER yesterday as well for dislocated right shoulder. As per the Jc has been dealing with low-grade fever for last 24 to 48 hours. His fever subsided with use of Tylenol and Motrin. They went to bed around 7 PM, around 8:30 PM when his checked on him, he was a bit confused, was mumbling his words that prompted his visit to the ER. At the time of my evaluation patient is awake and alert, GCS 15 NIH 0, patient is stating that he fell few weeks ago and injured his right shoulder, it was reduced by the ER physician last night patient does take muscle relaxer, opioids on as-needed basis, endorses to smoking and occasional drinking, does not endorse recreational drugs. Patient is denying any nausea, vomiting, diarrhea abdominal pain dysuria headache, blurry vision or neck pain. Hospital Course Hospital Course Admit to the hospital for further evaluation management of septic shock. He was started on broad-spectrum antibiotics, IV fluids and vasopressors. At first there was a concern for septic shock of unknown origin. CT abdomen pelvis was done which showed mild diverticulitis. Given discrepancy in patient's presentation and the level of infection there is a concern of possible prostatitis. During hospitalization his blood culture and urine culture remain negative. Patient responded well to the treatment and gradually his septic shock resolved. Patient on admission was also found to have shoulder dislocation which was initially reduced in the ER. Patient continued to have recurrent episodes of right shoulder dislocation for which CT scan was done which is conc erning for bony [place] fracture along the inferior glenoid rim. Care were discussed in detail with on-call orthopedic who suggested patient to be seen at a higher center given the concern for fracture. Care were discussed in detail with orthopedic team from [facility] who recommended patient to be followed up as an outpatient for further management. Patient continued to work well with physical therapy. He is been discharged in hemodynamically stable condition with advised to follow-up with his primary care provider within next 1 week. He is to continue taking his ciprofloxacin and Flagyl for 2 more weeks. While he is on ciprofloxacin he should not take tizanidine. He should remain in immobilizer for recurrent right shoulder dislocation along with fracture. Physical Exam Const: COMMON NORMALS: no acute distress and patient oriented x3 ORIENTATION/CONSCIOUSNESS: Yes awake, Yes oriented to person and Yes oriented to place; not oriented to time Eye: COMMON NORMALS: Equal, round and reactive pupils present and EOMs intact bilaterally PUPIL: Yes Equal, round and reactive pupils present Neck/C-Spine: COMMON NORMALS: no JVD Lymph: LYMPHATIC: no lymphadenopathy noted Resp: COMMON NORMALS: normal respiratory effort, No retractions, No use of accessory muscles and clear to auscultation bilaterally AUSCULTATION: clear to auscultation bilaterally, crackles and wheezes Cardio: COMMON NORMALS: no JVD, regular rate, regular rhythm, S1 normal heart sound present and S2 normal heart sound present RATE: regular rate RHYTHM: regular rhythm HEART SOUNDS: S1 normal heart sound present and S2 normal heart sound present GI: COMMON NORMALS: Normal to inspection, nondistended, normoactive bowel sounds present and non-tender Extremity: COMMON NORMALS: no pedal edema NARRATIVE EXTREMITY EXAM: Right shoulder immobilizer, good radial pulses, Neuro: COMMON NORMALS: patient oriented x3 SENSORIUM/ORIENTATION: Yes oriented to person, Yes oriented to place and No oriented to time Psych: COMMON NORMALS: mental status grossly normal Skin: NARRATIVE SKIN EXAM: Right shoulder, is held tightly to his side, minimal range of motion Urinary Catheter Management: Amaya: Cath Placed During This Visit: yes, but has since been removed by the nurse Reason for Continuing Indwelling Catheter: Decision to DC Catheter Urinary Catheter Date of Insertion: 02/22/25 Urinary Catheter Time of Insertion: 01:05 Date Urinary Catheter Removed: 02/25/25 Time Urinary Catheter Discontinued: 12:35 Discharge Data Studies Completed and Pending Completed Studies During Hospitalization Category Date Time Status CT abdomen pelvis w con* [id number] Routine Cat Scan 02/24/25 08:[address] abdomen pelvis wo con [id number] Stat Cat Scan 02/21/25 23:[address] chest wo con [id number] Routine Cat Scan 02/22/25 08:[address] head wo con* [id number] Stat Cat Scan 02/21/25 21:[address] lumbar spine wo con* [id number] Routine Cat Scan 02/22/25 08:[address] shoulder RT wo con* [id number] Routine Cat Scan 02/22/25 08:49 Completed XR chest 1V portable [id number] Stat Exams 02/21/25 21:29 Completed XR chest 1V portable [id number] Stat Exams 02/22/25 01:34 Completed CV. echo complete* [id number] Routine Ultrasound 02/22/25 01:52 Completed US renal BI* [id number] Routine Ultrasound 02/22/25 08:15 Completed Pending at discharge Category Date Time Status Blood Culture Stat Lab 02/21/25 21:32 Results Complete Blood Count w/Auto AM LABS Lab 02/27/25 04:00 Ordered Comprehensive Metabolic Panel AM LABS Lab 02/27/25 04:00 Ordered OVA and Parasites, Conc and PE Routine Lab 02/22/25 16:58 Received Salmonella / Shigella / Campy Routine Lab 02/22/25 16:58 Received Radiology Impressions Head CT 02/21/25 21:29 IMPRESSION: No acute intracranial abnormality. Chest X-Ray 02/22/25 01:34 IMPRESSION: 1. Right internal jugular central venous line with its tip in the right atrium. 2. Anterior subluxation of the right shoulder. Renal Ultrasound 02/22/25 08:15 IMPRESSION: Technically difficult study due to bowel gas. 1. No hydronephrosis in either kidney. 2. Amaya catheter. 3. LEFT renal cysts. Shoulder CT 02/22/25 08:49 IMPRESSION: Anterior-inferior shoulder dislocation with bony [place] fracture along the inferior glenoid rim. Small avulsed fragments. Chest CT 02/22/25 08:50 IMPRESSION: 1. Trace pleural fluid with slight RIGHT basilar atelectasis. 2. No focal pneumonia or consolidation. 3. Small esophageal hernia. 4. Partially visualized RIGHT shoulder dislocation 5. No other acute findings. Lumbar Spine CT 02/22/25 08:50 IMPRESSION: 1. Compression fractures involving the L1 L2 and L4 vertebral bodies with endplate Schmorl's nodes. These are most likely chronic and appear stable since 07/16/2022 2. Mild central canal stenosis L4-5 due to small central protrusion. Abdomen/Pelvis CT 02/24/25 08:29 IMPRESSION: 1. Mild/questionable bowel wall thickening involving the ascending colon and multiple loops of small bowel. This may be incidental, may represent ascending colonic diverticulitis, or may represent other nonspecific enterocolitis. 2. Moderate colonic diverticulosis. The presence of trace fluid in the bilateral paracolic gutters could easily obscure mild acute diverticulitis of the ascending, descending, or sigmoid colons. 3. Mild bowel wall thickening of the rectum. This can be seen with proctitis. No evidence of drainable fluid collection. 4. Normal radiographic appearance of the prostate. 5. Urinary bladder demonstrates a mildly thickened bladder wall. This is likely incidental secondary to nondistention. Mild cystitis could have a similar appearance. 6. Multiple small nonobstructing renal calculi measuring up to 0.4 cm. These may be vascular in nature. No hydronephrosis or hydroureter. COMMENTS: Consistent with the [employer]'s Incidental Findings Committee white paper (J Am Gill Radiol 2018): Any incidental renal lesion less than 1 cm or classified as too small to characterize, or any incidental cystic renal lesion characterized as simple-appearing, is likely benign. No follow-up imaging is recommended for these lesions per consensus recommendations based on imaging criteria. Laboratory Results WBC 9.69 10^3/uL (3.29-11.43) 02/26/25 04:24 RBC 3.83 10^6/uL (3.85-5.65) L 02/26/25 04:24 Hgb 12.40 g/dL (11.27-16.99) 02/26/25 04:24 Hct 37.9 % (37-53) 02/26/25 04:24 MCV 99.0 fl (82-101) 02/26/25 04:24 MCH 32.4 pg (27-33) 02/26/25 04:24 MCHC 32.7 g/dL (30-55) 02/26/25 04:24 RDW 15.9 % (12.1-15.1) H 02/26/25 04:24 Plt Count 159 10^3/cmm (157-399) D 02/26/25 04:24 MPV 9.6 fL (7.4-10.4) 02/26/25 04:24 Neut % (Auto) 21.7 % 02/26/25 04:24 Lymph % (Auto) 69.1 % 02/26/25 04:24 Boyd % (Auto) 8.6 % 02/26/25 04:24 Eos % (Auto) 0.1 % 02/26/25 04:24 Baso % (Auto) 0.2 % 02/26/25 04:24 Neut # (Auto) 2.10 10^3/uL (1.8-7.7) 02/26/25 04:24 Lymph # (Auto) 6.7 10^3/uL (0.8-4.8) H 02/26/25 04:24 Boyd # (Auto) 0.8 10^3/uL (0.2-0.9) 02/26/25 04:24 Eos # (Auto) 0.0 10^3/uL (0.0-0.8) 02/26/25 04:24 Baso # (Auto) 0.0 10^3/uL (0.0-0.1) 02/26/25 04:24 Nucleated RBC % (auto) 0 % 02/26/25 04:24 Total Counted 100 (0-100) 02/22/25 17:37 Atypical Lymphs % 8.0 % (0-5) H 02/22/25 17:37 Absolute Neutrophils 8.9 10^3/cmm (1.4-6.5) H 02/22/25 17:37 Segmented Neutrophils 22 % 02/22/25 17:37 Band Neutrophils 41.0 % 02/22/25 17:37 Absolute Lymphocytes 2.0 10^3/cmm (1.2-3.4) 02/22/25 17:37 Lymphocytes (Manual) 6 % 02/22/25 17:37 Monocytes (Manual) 0.0 % 02/22/25 17:37 Absolute Monocytes 0.0 10^3/cmm (0.1-0.6) L 02/22/25 17:37 Eosinophils (Manual) 0 % 02/22/25 17:37 Absolute Eosinophils 0.0 10^3/cmm (0.0-0.7) 02/22/25 17:37 Basophils (Manual) 1.0 % 02/22/25 17: Absolute Basophils 0.1 10^3/cmm (0.0-0.2) 02/22/25 17:37 Metamyelocytes 1.0 % 02/22/25 17:37 Nucleated RBCs # 0.0 /100WBC 02/26/25 04:24 Platelet Estimate Decreased (Normal) 02/22/25 17: Giant Platelets Trace 02/22/25 17:37 Anisocytosis 1+ H 02/22/25 17:37 Macrocytosis Trace 02/22/25 17:37 ESR 15 mm/hr (0-10) H 02/22/25: PT 15.70 SECONDS (12.1-14.9) H 02/21/25 21: INR 1.17 (0.8-1.2) 02/21/25 21: Specimen Type Arterial 02/21/25: Sample Site Radial, left 02/21/25: ABG pH 7.35 (7.35-7.45) 02/21/25: ABG pCO2 37.3 mmHg (35-45) 02/21/25: ABG pO2 77.5 mmHg (80.0-100.0) L 02/21/25: ABG HCO3 20.5 mmol/L (22-26) L 02/21/25: ABG O2 Saturation 95.6 02/21/25: ABG Base Excess -4.6 mmol/L (-2.0-2.0) L 02/21/25: Will Test Pos 02/21/25: A-a O2 Gradient 3.3 mmHg (5-10) L 02/21/25 21: Hematocrit 48.4 % (42-52) 02/21/25: Hgb O2 Saturation 93.0 % (95-100) L 04/09/25 21:26 Carboxyhemoglobin 1.7 %THgb (0.4-20.1) 02/21/25 21:26 Methemoglobin 1.1 % (0.4-1.5) 02/21/25 21:26 Total Hemoglobin 15.8 g/dL (14-18) 02/21/25 21:26 Sodium 138.0 mmol/L (131-143) 02/21/25 21: Potassium 4.2 mmol/L (3.5-5.0) 02/21/25 21:26 Glucose 101.0 mg/dL (70-115) 02/21/25 21:26 Ionized Calcium 1.2 mmol/L (1.1-1.4) 02/21/25 21:26 O2 Delivery Device Nc 02/21/25 21:26 O2 Liters/Min 5.0 % 02/21/25 21: [employer] Operator ID [email or web address] 02/21/25 21:26 Sodium 143 mmol/L (136-145) 02/26/25 04:24 Potassium 3.6 mmol/L (3.5-5.1) 02/26/25 04:24 Chloride 109 mmol/L (98-107) H 02/26/25 04:24 Carbon Dioxide 26 mmol/L (22-29) 02/26/25 04:24 Anion Gap 11.6 (5-19) 02/26/25 04:24 BUN 19 mg/dL (8-23) 02/26/25 04:24 Creatinine 0.6 mg/dL (0.7-1.2) L 02/26/25 04:24 GFR Calculation 133.6 mL/min (90-130) H 02/26/25 04:24 Glucose 98 mg/dL (65-115) 02/26/25 04:24 POC Glucose 102 mg/dL (70-110) 02/22/25 22:43 Calculated Osmolality 298 mOsm/kg (285-295) H 02/26/25 04:24 Lactic Acid 6.3 mmol/L (0.5-2.2) H* 02/21/25 21:22 Lactic Acid (Sepsis) 3.0 mmol/L (0.5-2.2) H 02/21/25 23:05 Lactate 0.8 mmol/L (0.5-2.2) 02/25/25 04:48 Calcium 8.4 mg/dL (8.5-10.5) L 02/26/25 04:24 Phosphorus 1.0 mg/dL (2.5-4.5) L 02/25/25 04:48 Magnesium 1.8 mg/dL (1.7-2.3) 02/25/25 04:48 Total Bilirubin 0.8 mg/dL (0.15-1.2) 02/25/25 04:48 AST 25 U/L (0-40) 02/25/25 04:48 ALT 12 U/L (0-41) 02/25/25 04:48 Alkaline Phosphatase 52 U/L (40-130) 02/25/25 04:48 Creatine Kinase 70 U/L (39-308) 02/25/25 04:48 Troponin T Baseline 67 ng/L (0-15) H 02/21/25 21:22 Troponin T 120 Minute 46.76 ng/L (0-15) H 02/21/25 23:05 Delta Troponin T -20.24 ABS# (0-10) L 02/21/25 23:05 Troponin T Hi Sens 6Hr 41.20 ng/L (0-15) H 02/22/25 04:26 Troponin T Hi Sens 6Hr Delta -25.80 ng/L (0-12) L 02/22/25 04:26 C-Reactive Protein 83.9 mg/L (0.0-4.9) H 02/25/25 04:48 NT-Pro-B Natriuret Pep 2361 pg/mL (0-125) H 02/25/25 04:48 Total Protein 5.7 g/dL (6.6-8.7) L 02/25/25 04:48 Albumin 3.3 g/dL (3.5-5.2) L 02/25/25 04:48 Globulin 2.4 g/dL (1.3-4.6) 02/25/25 04:48 Vitamin B12 > 2000 pg/mL (232-1245) H 02/22/25 00:00 Procalcitonin 5.79 ng/mL (0-0.5) H 02/25/25 04:48 TSH 2.28 uIU/mL (0.27-4.20) 02/22/25 00:00 Prolactin 74.30 ng/mL (4.0-15.2) H 02/21/25 21:22 Urine Color Yellow (Yellow) 02/21/25 21: Urine Appearance Clear (CLEAR) 02/21/25 21: Urine pH 5 (5-7) 02/21/25 21: Ur Specific Crary 1.007 (1.005-1.030) 02/21/25 21: Urine Protein Trace (Negative) 02/21/25 21: Urine Glucose (UA) Norm (Normal) 02/21/25 21: Urine Ketones Negative (Negative) 02/21/25 21: Urine Blood 2+ (Negative) H 02/21/25: Urine Nitrate Negative (Negative) 02/21/25: Urine Bilirubin Neg (Negative) 02/21/25 21: Urine Urobilinogen 8 mg/dL (Negative) H 02/21/25 21: Ur Leukocyte Esterase Negative (Negative) 02/21/25 21: Urine RBC 11-20 /hpf (0-2) H 02/21/25 21: Urine WBC 11-20 /hpf (0-5) H 02/21/25 21: Ur Squamous Epith Cells 0-5 /hpf (0-5) 02/21/25 21: Amorphous Sediment Not Reportable 02/21/25 21: Urine Bacteria None seen /hpf (NONE) 02/21/25 21: Hyaline Casts 0.81 /lpf 02/21/25 21: Vancomycin Trough 11.4 ug/mL (10-15) 02/24/25 19:50 Urine Opiates Screen Positive ng/mL (Negative) H 02/21/25 21: Ur Barbiturates Screen Negative ng/mL (Negative) 02/21/25 21: Ur Phencyclidine Scrn Negative ng/mL (Negative) 02/21/25 21: Ur Amphetamines Screen Negative ng/mL (Negative) 02/21/25 21: U Benzodiazepines Scrn Negative ng/mL (Negative) 02/21/25 21: Urine Cocaine Screen Negative ng/mL (Negative) 02/21/25 21: U Marijuana (THC) Screen Negative ng/mL (Negative) 02/21/25 21: Ethyl Alcohol < 10 mg/dL (0-10) 02/21/25 21:22 C. difficile (PCR) Negative (Negative) 02/23/25 09:35 Influenza A (PCR) Negative (Negative) 02/21/25 23:37 Influenza Type B (PCR) Negative (Negative) 02/21/25 23:37 RSV (PCR) Negative (Negative) 02/21/25 23:37 SARS-CoV-2 (PCR) Negative (Negative) 02/21/25 23:37 Vitals Last Vital Signs Temp 98.1 F 02/26/25 11:10 Pulse 80 02/26/25 11:10 Resp 16 02/26/25 11:10 BP 145/87 02/26/25 11:10 Pulse Ox 92 02/26/25 11:10 O2 Del Method Room Air 02/26/25 11:10 O2 Flow Rate 2 02/24/25 04:30 Discharge Plan Discharge Patient Disposition: Home Condition: Stable Prescriptions: New metronidazole 500 mg Tablet 500 mg PO TID 14 Days Qty: 42 0RF ciprofloxacin HCl 500 mg Tablet 500 mg PO BID@0900,2100 14 Days Qty: 28 0RF Continued clonazepam 0.5 mg tablet 0.5 mg PO TID sumatriptan succinate 100 mg tablet 100 mg PO PRN PRN (Reason: Migraine Headache) omeprazole 40 mg capsule,delayed release(DR/EC) 40 mg PO BID ezetimibe 10 mg tablet 10 mg PO BEDTIME citalopram 40 mg tablet 40 mg PO DAILY trazodone 50 mg tablet 50 mg PO DAILY tramadol 50 mg tablet 50 mg PO Q6H PRN (Reason: Pain) gabapentin 300 mg capsule 300 mg PO TID folic acid 1 mg tablet 1 mg PO DAILY albuterol sulfate [Ventolin HFA] 90 mcg/actuation HFA aerosol inhaler 2 puff INHALATION Q4H PRN (Reason: Shortness Of Breath Or Wheezing) prednisone 5 mg tablet 10 mg PO BIDWM Qty: 30 0RF Held methotrexate sodium 2.5 mg tablet See Rx Instructions .ROUTE .COMPLEX Hold Instructions: Resume on 03/12/25. Rx Instructions: TAKE 5 TABLETS BY MOUTH ONCE A WEEK ON SATURDAYS AND SUNDAYS tizanidine 4 mg capsule 4 mg PO TID Hold Instructions: Resume on 03/13/25. Discontinued fluconazole 200 mg tablet 200 mg PO DAILY Discharge Orders: Discharge Order (Routine); Ordered 02/26/25 Ordered By: Mark Salomon Referrals: Chidi Barakat MD [Referring] - (Anterior-inferior shoulder dislocation with bony [place] fracture along the inferior glenoid rim) Abel Moser MD [Primary Care Provider] - 03/05/25 2:15 pm Discharge Diet: Cardiac Discharge Activity: Resume usual activity and Increase activity as tolerated Patient Instructions: Ciprofloxacin (By mouth), Metronidazole (By mouth), Urinary Tract Infection in Men (DC), Altered Mental Status (ED), Opioid Safety Activity Restrictions/Additional Instructions: Please follow-up with your primary care provider within next 1 week. Take antibiotics with ciprofloxacin and Flagyl for next 2 weeks. Do not take tizanidine while you are on ciprofloxacin. Hold methotrexate for 2 weeks. You should follow-up with orthopedic surgeon at [place] for further evaluation and management of recurrent right shoulder dislocation with fracture. You should keep your right arm in the immobilizer until you see your orthopedic surgeon. Discharge Attestations Time Spent in Discharge Care*: greater than 30 min Specific Discharge Activities: educating patient, educating and/or supporting family/caregiver, discussing with pcp/other providers, discussing with transplant case manager/social workers/dc planners, documenting/other paperwork and evaluating patient/reviewing data Status at Discharge: Cognitive status at discharge: cognitively intact , Behavioral status at discharge: cooperative , Functional status at discharge: independent ambulation , Overall status at discharge: patient is progressing back to baseline Quality Metrics Clinical Quality Measures [ No reported AMI, CVA or VTE this stay] Coding Level of Care Code 50965 Total time (in minutes) for Discharge: 65 Diagnoses Elevated troponin R79.89 Acute kidney injury N17.9 Septic shock A41.9; R65.21 Rheumatoid arthritis M06.9 Dislocation of shoulder region S43.004A Encounter type: initial encounter Laterality: right UTI (urinary tract infection) N39.0 Diverticulitis K57.92 Melena K92.1 Acute bacterial prostatitis N41.0
[2025-02-26 12:59] VITALS: BP 145/87; PULSE 80; RESP 16; TEMP 36.7; O2SAT 92
== END 2025-02-26 15:14 | disposition home or self-care (01) | DRG 871 ==
LOC: ER 22:56 → ER IP 23:12 → ICU 02-22 06:57 → MEDSURG 02-24 14:06
PROVIDERS: Family Medicine; Admitting Provider Internal Medicine; Emergency Provider Emergency Medicine; PCP Family Medicine; Visit Provider Student in an Organized Health Care Education/Training Program
DX: A41.9 Sepsis, unspecified organism (principal); R65.21 Severe sepsis with septic shock; N17.9 Acute kidney failure, unspecified; N39.0 Urinary tract infection, site not specified; K57.92 Diverticulitis of intestine, part unspecified, without perforation or abscess without bleeding; N41.0 Acute prostatitis; E87.20 Acidosis, unspecified; R79.89 Other specified abnormal findings of blood chemistry; B96.89 Other specified bacterial agents as the cause of diseases classified elsewhere; S42.141A Displaced fracture of glenoid cavity of scapula, right shoulder, initial encounter for closed fracture; X58.XXXA Exposure to other specified factors, initial encounter; N20.0 Calculus of kidney; J44.9 Chronic obstructive pulmonary disease, unspecified; F17.210 Nicotine dependence, cigarettes, uncomplicated; D69.6 Thrombocytopenia, unspecified; K52.9 Noninfective gastroenteritis and colitis, unspecified; K21.9 Gastro-esophageal reflux disease without esophagitis; F41.8 Other specified anxiety disorders; G43.909 Migraine, unspecified, not intractable, without status migrainosus
CPT/HCPCS: 36415; 36416; 36592; 36600; 51702; 70450; 71045; 71250; 72131; 73200; 74176; 74177; 76770; 80048; 80051; 80053; 80202; 80306; 80307; 81003; 82274; 82330; 82550; 82607; 82805; 82962; 83605; 83630; 83735; 83880; 84100; 84145; 84146; 84443; 84484; 85007; 85025; 85610; 85651; 86140; 87040; 87045; 87086; 87177; 87209; 87427; 87449; 87493; 87637; 93005; 93306; 96365; 96366; 96367; 96375; 96376; 97116; 97161; 97165; 97530; 99285; J1171; J1200; J1720; J1885; J2185; J2310; J2470; J2543; J2765; J3370; J7030; J7050; J7512; J9999; P9046